=== PATIENT | female | born 1955 | race Caucasian/White ===

== ENCOUNTER 2020-07-29 05:02 | Day surgery (SDC) | payer OTHER ==
[2020-07-22 09:51] VITALS: BMI 37.2
[2020-07-29 15:49] VITALS: TEMP 98.4
[2020-07-29 17:30] VITALS: BP 157/86; PULSE 100
== END 2020-07-29 17:00 | disposition left against medical advice (07) ==
LOC: JRADIR 05:02
PROVIDERS: ATTEND Internal Medicine Pulmonary Disease
PROC: 0BBG3ZX Excision of Left Upper Lung Lobe, Percutaneous Approach, Diagnostic (ICD-10-PCS; principal; 2020-07-29)
DX: C34.12 Malignant neoplasm of upper lobe, left bronchus or lung (principal); J95.811 Postprocedural pneumothorax; Y84.8 Other medical procedures as the cause of abnormal reaction of the patient, or of later complication, without mention of misadventure at the time of the procedure; Y82.8 Other medical devices associated with adverse incidents; Y92.530 Ambulatory surgery center as the place of occurrence of the external cause
CPT/HCPCS: 32405; 71045-TC-FY; 77012-TC; 88305-TC; 88341-TC; 88342-TC

== ENCOUNTER 2020-07-30 11:03 | Inpatient (IN) | payer OTHER ==
[2020-07-30] MEDS ORDERED: LORazepam 2 MG/ML SDV VIAL ONE (12:02)
[2020-07-30 12:25] LABS: BASO % 0.9 % (0-2.0); EOS % 1.8 % (0-4.5); HEMATOCRIT 39.8 % (32.4-45.2); HEMOGLOBIN 12.6 GM/dL (10.7-15.3); LYMPH % 30.4 % (8-40); MCHC 31.7 g/dl (32.0-36.0); MEAN CELL VOLUME 85.1 fl (80-96); MEAN PLT VOLUME 8.9 fl (7.5-11.1); MONO % 8.3 % (3.8-10.2); NEUT % 58.6 % (42.8-82.8); PLATELET COUNT 345 K/MM3 (134-434); RBC 4.67 M/mm3 (3.60-5.2); WHITE BLOOD COUNT 8.5 K/mm3 (4.0-10.0)
[2020-07-30 12:35] LABS: INR 1.07 (0.83-1.09); PROTHROMBIN TIME (PATIENT) 13.1 SEC (9.7-13.0)
[2020-07-30 12:44] LABS: POTASSIUM 4.5 mmol/L (3.5-5.1)
[2020-07-30 12:46] LABS: ALBUMIN 3.6 g/dl (3.4-5.0); BLOOD UREA NITROGEN 18.1 mg/dL (7-18)
[2020-07-30 12:49] LABS: CREATININE 0.8 mg/dL (0.55-1.3)
[2020-07-30 12:51] LABS: BILIRUBIN,TOTAL 0.3 mg/dL (0.2-1)
[2020-07-30] MEDS ORDERED: SENNOSIDES 8.6MG TABLET (FP) PO PRN (15:04)
[2020-07-30] MEDS ORDERED: ACETAMINOPHEN 325 MG TABLET (FP) PO PRN (15:15)
[2020-07-30 16:04] LABS: HEMATOCRIT 37.2 % (32.4-45.2); HEMOGLOBIN 11.7 GM/dL (10.7-15.3); MCH 26.9 pg (25.7-33.7); MCHC 31.5 g/dl (32.0-36.0); MEAN CELL VOLUME 85.2 fl (80-96); MEAN PLT VOLUME 8.7 fl (7.5-11.1); PLATELET COUNT 289 K/MM3 (134-434); RBC 4.37 M/mm3 (3.60-5.2); RDW 15.8 % (11.6-15.6); WHITE BLOOD COUNT 7.8 K/mm3 (4.0-10.0)
[2020-07-30] MEDS ORDERED: DOCUSATE SODIUM 100 MG CAPSULE (FP) PO PRN (16:31)
[2020-07-30 20:55] VITALS: BMI 38.2
[2020-07-30] MEDS ORDERED: traZODone HCL 100 MG TABLET (FP) PO SCH (22:00)
[2020-07-31] MEDS ORDERED: PT OWN MED DRAWER 7, Y5N ONE (09:24)
[2020-07-31 09:47] LABS: HEMATOCRIT 40.2 % (32.4-45.2); HEMOGLOBIN 12.6 GM/dL (10.7-15.3); MCH 26.8 pg (25.7-33.7); MCHC 31.3 g/dl (32.0-36.0); MEAN CELL VOLUME 85.6 fl (80-96); MEAN PLT VOLUME 9.1 fl (7.5-11.1); PLATELET COUNT 297 K/MM3 (134-434); RBC 4.69 M/mm3 (3.60-5.2); RDW 16.2 % (11.6-15.6)
[2020-07-31] MEDS ORDERED: CYANOCOBALAMIN 1,000 MCG TABLET (FP) PO SCH (10:00)
[2020-07-31] MEDS ORDERED: ENALAPRIL MALEATE 10 MG TABLET PO SCH ×2 (10:00)
[2020-07-31 10:05] LABS: POTASSIUM 4.1 mmol/L (3.5-5.1)
[2020-07-31 10:07] LABS: CALCIUM 9.2 mg/dL (8.5-10.1)
[2020-07-31 10:08] LABS: BLOOD UREA NITROGEN 16.2 mg/dL (7-18); MAGNESIUM 2.1 mg/dL (1.8-2.4)
[2020-07-31 10:10] LABS: CREATININE 0.9 mg/dL (0.55-1.3)
[2020-07-31] MEDS ORDERED: oxyCODONE HCL 5 MG TABLET PO ONE (13:45)
[2020-07-31 14:09] VITALS: BP 139/90; PULSE 98; TEMP 97.9
== END 2020-07-31 15:04 | disposition home or self-care (01) | DRG 143 ==
LOC: JER 11:03 → JERBED 13:47 → J6S 20:07
PROVIDERS: ATTEND Internal Medicine
PROC: 0W9B30Z Drainage of Left Pleural Cavity with Drainage Device, Percutaneous Approach (ICD-10-PCS; principal; 2020-07-30)
PROC: 0WPBX0Z Removal of Drainage Device from Left Pleural Cavity, External Approach (ICD-10-PCS; 2020-07-31)
DX: J95.811 Postprocedural pneumothorax (principal); J44.9 Chronic obstructive pulmonary disease, unspecified; E11.9 Type 2 diabetes mellitus without complications; E78.00 Pure hypercholesterolemia, unspecified; D38.1 Neoplasm of uncertain behavior of trachea, bronchus and lung; F17.210 Nicotine dependence, cigarettes, uncomplicated; F41.8 Other specified anxiety disorders; E66.9 Obesity, unspecified; Z68.38 Body mass index [BMI] 38.0-38.9, adult; I11.0 Hypertensive heart disease with heart failure; I50.30 Unspecified diastolic (congestive) heart failure; Z86.718 Personal history of other venous thrombosis and embolism
CPT/HCPCS: 32557; 36415; 71045-TC-FY; 80048; 80053; 83735; 85025; 85027; 85610; 86850; 86900; 86901; 93005; 93010; 99285-25; C9803; U0003

== ENCOUNTER 2020-09-24 07:28 | Day surgery (SDC) | payer OTHER ==
[2020-09-24] MEDS ORDERED: SODIUM CHLORIDE 250 ML IV ONE (09:00)
[2020-09-24] MEDS ORDERED: DEXAMETHASONE SODIUM PHOSPHATE 10 MG in SODIUM CHLORIDE 50 ML IVPB ONE (09:30)
[2020-09-24] MEDS ORDERED: PALONOSETRON HCL 0.25 MG/5 ML VIAL IVPUSH ONE (09:30)
[2020-09-24] MEDS ORDERED: CARBOPLATIN IVPB ONE ×2 (10:00→10:03)
[2020-09-24] MEDS ORDERED: SODIUM CHLORIDE IVPB ONE ×2 (10:00→10:03)
[2020-09-24] MEDS ORDERED: SODIUM CHLORIDE IV ONE (10:30)
[2020-09-24] MEDS ORDERED: ETOPOSIDE IV ONE (10:30)
[2020-09-24 10:40] LABS: POTASSIUM 4.6 mmol/L (3.5-5.1)
[2020-09-24 10:43] LABS: ALBUMIN 3.9 g/dl (3.4-5.0); CALCIUM 9.7 mg/dL (8.5-10.1); MAGNESIUM 2.1 mg/dL (1.8-2.4)
[2020-09-24 10:45] LABS: BILIRUBIN,DIRECT 0.1 mg/dL (0.0-0.2)
[2020-09-24 10:46] LABS: CREATININE 0.8 mg/dL (0.55-1.3)
[2020-09-24 10:47] LABS: BILIRUBIN,TOTAL 0.4 mg/dL (0.2-1); TOT PROT 7.2 g/dl (6.4-8.2)
[2020-09-24 10:59] LABS: BASO % 0.9 % (0-2.0); EOS % 1.7 % (0-4.5); HEMATOCRIT 40.2 % (32.4-45.2); HEMOGLOBIN 13.1 GM/dL (10.7-15.3); LYMPH % 31.8 % (8-40); MCH 27.4 pg (25.7-33.7); MCHC 32.6 g/dl (32.0-36.0); MEAN CELL VOLUME 83.9 fl (80-96); MEAN PLT VOLUME 9.5 fl (7.5-11.1); MONO % 6.8 % (3.8-10.2); NEUT % 58.8 % (42.8-82.8); PLATELET COUNT 302 K/MM3 (134-434); RBC 4.79 M/mm3 (3.60-5.2); RDW 16.5 % (11.6-15.6); WHITE BLOOD COUNT 8.9 K/mm3 (4.0-10.0)
[2020-09-24 17:38] VITALS: BP 137/78; PULSE 96; TEMP 98.4
[2020-09-24] MEDS ORDERED: PORTA CATH FLUSH 10 ML IVPUSH ONE (17:38)
[2020-09-24] MEDS ORDERED: LIDOCAINE 2.5%/PRILOCAINE 2.5% (5 Gram/TUBE) TP ONE (18:00)
== END 2020-09-24 15:45 | disposition home or self-care (01) ==
LOC: JONCCHEMO 07:28
PROVIDERS: ATTEND Internal Medicine Hematology & Oncology
DX: Z51.11 Encounter for antineoplastic chemotherapy (principal); C34.12 Malignant neoplasm of upper lobe, left bronchus or lung
CPT/HCPCS: 36415; 80048; 80076; 83735; 85025; 96361; 96375; 96413; 96415; 96417; J2469

== ENCOUNTER 2020-09-25 08:17 | Day surgery (SDC) | payer OTHER ==
[~2020-09-25 08:17] MED LIST: DEXAMETHASONE INJECTION 4 MG in SODIUM CHLORIDE 50 ML IVPB ONE
[2020-09-25] MEDS ORDERED: SODIUM CHLORIDE 250 ML IV ONE (09:00)
[2020-09-25] MEDS ORDERED: ONDANSETRON 4 MG/2 ML VIAL IVPB ONE (09:00)
[2020-09-25] MEDS ORDERED: DEXAMETHASONE SODIUM PHOSPHATE 10 MG, ONDANSETRON INJECTION 8 MG in SODIUM CHLORIDE 100 ML IVPB ONE (09:30)
[2020-09-25] MEDS ORDERED: DEXAMETHASONE INJECTION 4 MG, ONDANSETRON INJECTION 8 MG in SODIUM CHLORIDE 100 ML IVPB ONE (09:30)
[2020-09-25] MEDS ORDERED: SODIUM CHLORIDE IV ONE (10:00)
[2020-09-25] MEDS ORDERED: ETOPOSIDE IV ONE (10:00)
[2020-09-25] MEDS ORDERED: ACETAMINOPHEN 325 MG TABLET (FP) PO ONE (12:00)
[2020-09-25] MEDS ORDERED: oxyCODONE HCL 5 MG TABLET PO ONE (12:00)
[2020-09-25] MEDS ORDERED: DEXAMETHASONE SOD PHOSPHATE 20 MG/5 ML VIAL IVPB ONE (13:17)
[2020-09-25] MEDS ORDERED: PORTA CATH FLUSH 10 ML IVPUSH ONE (13:31)
[2020-09-25 13:50] VITALS: TEMP 98.7
[2020-09-25 15:36] VITALS: BP 164/95; PULSE 78
== END 2020-09-25 15:35 | disposition home or self-care (01) ==
LOC: JONCCHEMO 08:17
PROVIDERS: ATTEND Internal Medicine Hematology & Oncology
DX: Z51.11 Encounter for antineoplastic chemotherapy (principal); C34.12 Malignant neoplasm of upper lobe, left bronchus or lung
CPT/HCPCS: 96361; 96367; 96413; 96415; J1100

== ENCOUNTER 2020-09-26 07:18 | Day surgery (SDC) | payer OTHER ==
[2020-09-26] MEDS ORDERED: DEXAMETHASONE SOD PHOSPHATE 20 MG/5 ML VIAL IVPB ONE (09:00)
[2020-09-26] MEDS ORDERED: ONDANSETRON 4 MG/2 ML VIAL IVPB ONE (09:00)
[2020-09-26] MEDS ORDERED: SODIUM CHLORIDE 250 ML IV ONE (09:00)
[2020-09-26] MEDS ORDERED: DEXAMETHASONE SODIUM PHOSPHATE 4 MG, ONDANSETRON INJECTION 8 MG in SODIUM CHLORIDE 100 ML IVPB ONE (09:30)
[2020-09-26] MEDS ORDERED: DEXAMETHASONE SODIUM PHOSPHATE 10 MG, ONDANSETRON INJECTION 8 MG in SODIUM CHLORIDE 100 ML IVPB ONE (09:30)
[2020-09-26] MEDS ORDERED: oxyCODONE HCL 5 MG TABLET PO ONE (10:00)
[2020-09-26] MEDS ORDERED: ETOPOSIDE IV ONE (10:00)
[2020-09-26] MEDS ORDERED: ACETAMINOPHEN 325 MG TABLET (FP) PO ONE (10:00)
[2020-09-26] MEDS ORDERED: SODIUM CHLORIDE IV ONE (10:00)
[2020-09-26 13:09] VITALS: TEMP 97.7
[2020-09-26] MEDS ORDERED: PORTA CATH FLUSH 10 ML IVPUSH ONE (13:22)
[2020-09-26 15:07] VITALS: BP 141/73; PULSE 75
== END 2020-09-26 15:05 | disposition home or self-care (01) ==
LOC: JONCCHEMO 07:18
PROVIDERS: ATTEND Internal Medicine Hematology & Oncology
DX: Z51.11 Encounter for antineoplastic chemotherapy (principal); C34.12 Malignant neoplasm of upper lobe, left bronchus or lung
CPT/HCPCS: 96361; 96367; 96413; 96415; J2405

== ENCOUNTER 2020-09-27 14:34 | Day surgery (SDC) | payer OTHER ==
[~2020-09-27 14:34] MED LIST changes: -DEXAMETHASONE INJECTION 4 MG in SODIUM CHLORIDE 50 ML IVPB ONE; +PEGFILGRASTIM-CBQV (UDENYCA) 6 MG/0.6 ML SYRINGE SQ ONE
[2020-09-27 15:08] VITALS: BP 132/78; PULSE 88; TEMP 98.5
== END 2020-09-27 15:00 | disposition home or self-care (01) ==
LOC: JONCCHEMO 14:34 → J7W 14:37 → JONCCHEMO 15:00
PROVIDERS: ATTEND Internal Medicine Hematology & Oncology
PROC: 3E013GC Introduction of Other Therapeutic Substance into Subcutaneous Tissue, Percutaneous Approach (ICD-10-PCS; principal; 2020-09-27)
DX: C34.12 Malignant neoplasm of upper lobe, left bronchus or lung (principal); Z76.89 Persons encountering health services in other specified circumstances
CPT/HCPCS: 96372; Q5111

== ENCOUNTER 2020-10-14 07:26 | Day surgery (SDC) | payer OTHER ==
[2020-10-14] MEDS ORDERED: SODIUM CHLORIDE 250 ML IV ONE (09:00)
[2020-10-14 09:23] LABS: BASO % 0.4 % (0-2.0); EOS % 0.2 % (0-4.5); HEMATOCRIT 33.9 % (32.4-45.2); HEMOGLOBIN 11.2 GM/dL (10.7-15.3); LYMPH % 18.1 % (8-40); MEAN CELL VOLUME 84.7 fl (80-96); MEAN PLT VOLUME 8.4 fl (7.5-11.1); MONO % 7.1 % (3.8-10.2); NEUT % 74.2 % (42.8-82.8); PLATELET COUNT 320 K/MM3 (134-434); RDW 16.6 % (11.6-15.6); WHITE BLOOD COUNT 8.1 K/mm3 (4.0-10.0)
[2020-10-14] MEDS ORDERED: PALONOSETRON HCL 0.25 MG/5 ML VIAL IVPUSH ONE (09:30)
[2020-10-14] MEDS ORDERED: DEXAMETHASONE SODIUM PHOSPHATE 6 MG in SODIUM CHLORIDE 50 ML IVPB ONE (09:30)
[2020-10-14 09:55] LABS: POTASSIUM 4.7 mmol/L (3.5-5.1)
[2020-10-14 09:57] LABS: CALCIUM 9.5 mg/dL (8.5-10.1)
[2020-10-14 09:58] LABS: ALBUMIN 3.5 g/dl (3.4-5.0); BLOOD UREA NITROGEN 13.5 mg/dL (7-18)
[2020-10-14 10:00] LABS: BILIRUBIN,DIRECT 0.1 mg/dL (0.0-0.2)
[2020-10-14] MEDS ORDERED: ETOPOSIDE IV ONE (10:00)
[2020-10-14] MEDS ORDERED: SODIUM CHLORIDE IV ONE (10:00)
[2020-10-14 10:01] LABS: CREATININE 0.9 mg/dL (0.55-1.3)
[2020-10-14 10:02] LABS: BILIRUBIN,TOTAL 0.3 mg/dL (0.2-1); TOT PROT 6.8 g/dl (6.4-8.2)
[2020-10-14 11:15] LABS: ANISOCYTOSIS 1+; MACROCYTOSIS 1+; OVALOCYTE 1+; PLATELET ESTIMATE NORMAL
[2020-10-14] MEDS ORDERED: CARBOPLATIN IVPB ONE (12:00)
[2020-10-14] MEDS ORDERED: SODIUM CHLORIDE IVPB ONE (12:00)
[2020-10-14 14:25] LABS: URINE APPEARANCE CLEAR; URINE BILIRUBIN NEGATIVE (NEGATIVE); URINE COLOR YELLOW; URINE GLUCOSE (UA) NEGATIVE (NEGATIVE); URINE KETONE NEGATIVE (NEGATIVE); URINE LEUK ESTERASE NEGATIVE (NEGATIVE); URINE NITRITE NEGATIVE (NEGATIVE); URINE PROTEIN NEGATIVE (NEGATIVE); URINE UROBILINOGEN 0.2 mg/dL (0.2-1.0)
[2020-10-14 17:18] VITALS: BP 121/62; PULSE 82; TEMP 99.1
[2020-10-14] MEDS ORDERED: PORTA CATH FLUSH 10 ML IVPUSH ONE (17:19)
== END 2020-10-14 15:00 | disposition home or self-care (01) ==
LOC: JONCCHEMO 07:26
PROVIDERS: ATTEND Internal Medicine Hematology & Oncology
DX: Z51.11 Encounter for antineoplastic chemotherapy (principal); C34.12 Malignant neoplasm of upper lobe, left bronchus or lung
CPT/HCPCS: 36415; 80048; 80076; 81003; 83735; 85025; 87086; 96361; 96375; 96413; 96415; 96417; J2469

== ENCOUNTER 2020-10-15 07:59 | Day surgery (SDC) | payer OTHER ==
[2020-10-15] MEDS ORDERED: SODIUM CHLORIDE 250 ML IV ONE (09:00)
[2020-10-15] MEDS ORDERED: DEXAMETHASONE SODIUM PHOSPHATE 4 MG, ONDANSETRON INJECTION 8 MG in SODIUM CHLORIDE 100 ML IVPB ONE (09:30)
[2020-10-15] MEDS ORDERED: ETOPOSIDE IV ONE (10:00)
[2020-10-15] MEDS ORDERED: SODIUM CHLORIDE IV ONE (10:00)
[2020-10-15 16:18] VITALS: TEMP 98.6
[2020-10-15 16:22] VITALS: BP 95/50; PULSE 91
== END 2020-10-15 15:10 | disposition home or self-care (01) ==
LOC: JONCCHEMO 07:59
PROVIDERS: ATTEND Internal Medicine Hematology & Oncology
DX: Z51.11 Encounter for antineoplastic chemotherapy (principal); C34.12 Malignant neoplasm of upper lobe, left bronchus or lung
CPT/HCPCS: 96361; 96367; 96413; 96415; J2405

== ENCOUNTER 2020-10-16 07:49 | Day surgery (SDC) | payer OTHER ==
[2020-10-16] MEDS ORDERED: SODIUM CHLORIDE 250 ML IV ONE (09:00)
[2020-10-16] MEDS ORDERED: DEXAMETHASONE SODIUM PHOSPHATE 4 MG, ONDANSETRON INJECTION 8 MG in SODIUM CHLORIDE 100 ML IVPB ONE (09:30)
[2020-10-16] MEDS ORDERED: SODIUM CHLORIDE IV ONE (10:00)
[2020-10-16] MEDS ORDERED: ETOPOSIDE IV ONE (10:00)
[2020-10-16 16:54] VITALS: BP 147/85; PULSE 81; TEMP 98.3
== END 2020-10-16 16:00 | disposition home or self-care (01) ==
LOC: JONCCHEMO 07:49
PROVIDERS: ATTEND Internal Medicine Hematology & Oncology
DX: Z51.11 Encounter for antineoplastic chemotherapy (principal); C34.12 Malignant neoplasm of upper lobe, left bronchus or lung
CPT/HCPCS: 96361; 96367; 96413; 96415; J2405

== ENCOUNTER 2020-10-17 06:37 | Day surgery (SDC) | payer OTHER ==
[2020-10-17] MEDS ORDERED: PEGFILGRASTIM-CBQV (UDENYCA) 6 MG/0.6 ML SYRINGE SQ ONE (10:00)
[2020-10-17 15:36] VITALS: BP 130/72; PULSE 75; TEMP 98.5
== END 2020-10-17 14:45 | disposition home or self-care (01) ==
LOC: JONCCHEMO 06:37
PROVIDERS: ATTEND Internal Medicine Hematology & Oncology
PROC: 3E013GC Introduction of Other Therapeutic Substance into Subcutaneous Tissue, Percutaneous Approach (ICD-10-PCS; principal; 2020-10-17)
DX: C34.12 Malignant neoplasm of upper lobe, left bronchus or lung (principal)
CPT/HCPCS: 96372; Q5111

== ENCOUNTER 2020-11-02 10:14 | Emergency (ER) | payer OTHER ==
[2020-11-02 10:28] VITALS: TEMP 98.1; BMI 36.8
[2020-11-02] MEDS ORDERED: BAMLANIVIMAB 700 MG, ETESEVIMAB 1,400 MG in SODIUM CHLORIDE 250 ML IVPB ONE (10:59)
[2020-11-02 11:38] LABS: BASO % 0.4 % (0-2.0); HEMATOCRIT 30.1 % (32.4-45.2); HEMOGLOBIN 9.9 GM/dL (10.7-15.3); LYMPH % 13.3 % (8-40); MCH 28.2 pg (25.7-33.7); MCHC 32.8 g/dl (32.0-36.0); MEAN CELL VOLUME 85.9 fl (80-96); MONO % 10.1 % (3.8-10.2); NEUT % 76.2 % (42.8-82.8); PLATELET COUNT 140 K/MM3 (134-434); RDW 17.4 % (11.6-15.6); WHITE BLOOD COUNT 6.6 K/mm3 (4.0-10.0)
[2020-11-02 12:21] LABS: POTASSIUM 4.4 mmol/L (3.5-5.1)
[2020-11-02 12:23] LABS: BLOOD UREA NITROGEN 7.9 mg/dL (7-18); CALCIUM 8.9 mg/dL (8.5-10.1)
[2020-11-02 12:24] LABS: ALBUMIN 3.4 g/dl (3.4-5.0)
[2020-11-02 12:27] LABS: CREATININE 0.8 mg/dL (0.55-1.3)
[2020-11-02 12:28] LABS: BILIRUBIN,TOTAL 0.2 mg/dL (0.2-1); TOT PROT 6.6 g/dl (6.4-8.2)
[2020-11-02 12:30] LABS: ANISOCYTOSIS 2+; MACROCYTOSIS 0; OVALOCYTE 1+; PLATELET ESTIMATE DECREASED
[2020-11-02 13:35] VITALS: BP 128/76; PULSE 76
== END 2020-11-02 15:00 | disposition home or self-care (01) ==
LOC: JER 10:14
DX: U07.1 COVID-19 (principal)
CPT/HCPCS: 36415; 71046-TC-FY; 80053; 85025; 99284-25; M0239; Q0239; Q0245

== ENCOUNTER 2020-11-24 07:38 | Day surgery (SDC) | payer OTHER ==
[2020-11-24] MEDS ORDERED: SODIUM CHLORIDE 250 ML IV ONE (09:00)
[2020-11-24 09:07] LABS: BASO % 0.6 % (0-2.0); EOS % 2.8 % (0-4.5); HEMATOCRIT 34.7 % (32.4-45.2); HEMOGLOBIN 11.2 GM/dL (10.7-15.3); LYMPH % 16.3 % (8-40); MCH 28.8 pg (25.7-33.7); MCHC 32.3 g/dl (32.0-36.0); MEAN CELL VOLUME 88.9 fl (80-96); MEAN PLT VOLUME 8.8 fl (7.5-11.1); MONO % 8.8 % (3.8-10.2); NEUT % 71.5 % (42.8-82.8); PLATELET COUNT 231 K/MM3 (134-434); RBC 3.91 M/mm3 (3.60-5.2); RDW 22.3 % (11.6-15.6); WHITE BLOOD COUNT 6.7 K/mm3 (4.0-10.0)
[2020-11-24 09:28] LABS: CALCIUM 9.4 mg/dL (8.5-10.1)
[2020-11-24 09:29] LABS: ALBUMIN 3.7 g/dl (3.4-5.0); BLOOD UREA NITROGEN 12.7 mg/dL (7-18)
[2020-11-24] MEDS ORDERED: PALONOSETRON HCL 0.25 MG/5 ML VIAL IVPUSH ONE (09:30)
[2020-11-24] MEDS ORDERED: DEXAMETHASONE SODIUM PHOSPHATE 6 MG in SODIUM CHLORIDE 50 ML IVPB ONE (09:30)
[2020-11-24 09:31] LABS: BILIRUBIN,DIRECT 0.1 mg/dL (0.0-0.2)
[2020-11-24 09:32] LABS: CREATININE 0.9 mg/dL (0.55-1.3)
[2020-11-24 09:33] LABS: BILIRUBIN,TOTAL 0.5 mg/dL (0.2-1)
[2020-11-24 09:34] LABS: TOT PROT 6.9 g/dl (6.4-8.2)
[2020-11-24] MEDS ORDERED: ETOPOSIDE IV ONE (10:00)
[2020-11-24] MEDS ORDERED: SODIUM CHLORIDE IV ONE (10:00)
[2020-11-24] MEDS ORDERED: CARBOPLATIN IVPB ONE (12:00)
[2020-11-24] MEDS ORDERED: SODIUM CHLORIDE IVPB ONE (12:00)
[2020-11-24 17:12] VITALS: BP 130/59; PULSE 75; TEMP 98.9
[2020-11-24] MEDS ORDERED: PORTA CATH FLUSH 10 ML IVPUSH ONE (17:12)
== END 2020-11-24 15:35 | disposition home or self-care (01) ==
LOC: JONCCHEMO 07:38
PROVIDERS: ATTEND Internal Medicine Hematology & Oncology
DX: Z51.11 Encounter for antineoplastic chemotherapy (principal); C34.12 Malignant neoplasm of upper lobe, left bronchus or lung
CPT/HCPCS: 36415; 80048; 80076; 83735; 85025; 96361; 96367; 96375; 96413; 96415; 96417; J2469

== ENCOUNTER 2020-11-25 07:31 | Day surgery (SDC) | payer OTHER ==
[2020-11-25] MEDS ORDERED: SODIUM CHLORIDE 250 ML IV ONE ×2 (09:00)
[2020-11-25] MEDS ORDERED: DEXAMETHASONE SODIUM PHOSPHATE 4 MG, ONDANSETRON INJECTION 8 MG in SODIUM CHLORIDE 100 ML IVPB ONE ×2 (09:30)
[2020-11-25] MEDS ORDERED: SODIUM CHLORIDE IV ONE (10:00)
[2020-11-25] MEDS ORDERED: ETOPOSIDE IV ONE (10:00)
[2020-11-25 16:19] VITALS: BP 151/80; TEMP 98.7
[2020-11-25 17:08] VITALS: PULSE 88
== END 2020-11-25 15:00 | disposition home or self-care (01) ==
LOC: JONCCHEMO 07:31
PROVIDERS: ATTEND Internal Medicine Hematology & Oncology
DX: Z51.11 Encounter for antineoplastic chemotherapy (principal); C34.12 Malignant neoplasm of upper lobe, left bronchus or lung
CPT/HCPCS: 96361; 96367; 96413; 96415; J2405

== ENCOUNTER 2020-11-26 06:51 | Day surgery (SDC) | payer OTHER ==
[2020-11-26] MEDS ORDERED: SODIUM CHLORIDE 250 ML IV ONE (09:00)
[2020-11-26] MEDS ORDERED: DEXAMETHASONE SODIUM PHOSPHATE 4 MG, ONDANSETRON INJECTION 8 MG in SODIUM CHLORIDE 100 ML IVPB ONE (09:30)
[2020-11-26] MEDS ORDERED: ETOPOSIDE IV ONE (10:00)
[2020-11-26] MEDS ORDERED: SODIUM CHLORIDE IV ONE (10:00)
[2020-11-26 16:14] VITALS: TEMP 98.2
[2020-11-26 16:16] VITALS: BP 150/90; PULSE 96
== END 2020-11-26 12:50 | disposition home or self-care (01) ==
LOC: JONCCHEMO 06:51
PROVIDERS: ATTEND Internal Medicine Hematology & Oncology
DX: Z51.11 Encounter for antineoplastic chemotherapy (principal); C34.12 Malignant neoplasm of upper lobe, left bronchus or lung
CPT/HCPCS: 96361; 96367; 96413; 96415; J2405

== ENCOUNTER 2020-11-27 07:27 | Day surgery (SDC) | payer OTHER ==
[2020-11-27] MEDS ORDERED: PEGFILGRASTIM-CBQV (UDENYCA) 6 MG/0.6 ML SYRINGE SQ ONE (10:00)
[2020-11-27 18:24] VITALS: BP 123/64; PULSE 102; TEMP 98.4
== END 2020-11-27 10:45 | disposition home or self-care (01) ==
LOC: JONCCHEMO 07:27
PROVIDERS: ATTEND Internal Medicine Hematology & Oncology
PROC: 3E013GC Introduction of Other Therapeutic Substance into Subcutaneous Tissue, Percutaneous Approach (ICD-10-PCS; principal; 2020-11-27)
DX: C34.12 Malignant neoplasm of upper lobe, left bronchus or lung (principal); Z76.89 Persons encountering health services in other specified circumstances
CPT/HCPCS: 96372; Q5111

== ENCOUNTER 2020-12-15 07:17 | Day surgery (SDC) | payer OTHER ==
[2020-12-15] MEDS ORDERED: SODIUM CHLORIDE 250 ML IV ONE (09:00)
[2020-12-15] MEDS ORDERED: PALONOSETRON HCL 0.25 MG/5 ML VIAL IVPUSH ONE (10:00)
[2020-12-15] MEDS ORDERED: DEXAMETHASONE SODIUM PHOSPHATE 6 MG in SODIUM CHLORIDE 50 ML IVPB ONE (10:00)
[2020-12-15] MEDS ORDERED: SODIUM CHLORIDE IVPB ONE ×2 (10:30→12:45)
[2020-12-15] MEDS ORDERED: CARBOPLATIN IVPB ONE ×2 (10:30→12:45)
[2020-12-15 10:51] LABS: BASO % 0.6 % (0-2.0); EOS % 0.4 % (0-4.5); HEMATOCRIT 30.1 % (32.4-45.2); HEMOGLOBIN 9.9 GM/dL (10.7-15.3); LYMPH % 16.5 % (8-40); MCH 29.8 pg (25.7-33.7); MCHC 32.9 g/dl (32.0-36.0); MEAN CELL VOLUME 90.4 fl (80-96); MEAN PLT VOLUME 8.6 fl (7.5-11.1); MONO % 10.5 % (3.8-10.2); PLATELET COUNT 428 K/MM3 (134-434); RBC 3.32 M/mm3 (3.60-5.2); RDW 21.4 % (11.6-15.6); WHITE BLOOD COUNT 6.5 K/mm3 (4.0-10.0)
[2020-12-15] MEDS ORDERED: ETOPOSIDE IV ONE (11:00)
[2020-12-15] MEDS ORDERED: SODIUM CHLORIDE 0.9% IV ONE (11:00)
[2020-12-15 11:16] LABS: ALBUMIN 3.4 g/dl (3.4-5.0); BLOOD UREA NITROGEN 12.3 mg/dL (7-18); CALCIUM 9.4 mg/dL (8.5-10.1)
[2020-12-15 11:19] LABS: BILIRUBIN,DIRECT 0.1 mg/dL (0.0-0.2); CREATININE 0.9 mg/dL (0.55-1.3)
[2020-12-15 11:21] LABS: TOT PROT 6.7 g/dl (6.4-8.2)
[2020-12-15 11:22] LABS: BILIRUBIN,TOTAL 0.3 mg/dL (0.2-1)
[2020-12-15 11:30] LABS: ANISOCYTOSIS 1+; MACROCYTOSIS 1+; PLATELET ESTIMATE NORMAL
[2020-12-15 17:57] VITALS: TEMP 98.3
[2020-12-15 17:58] VITALS: BP 106/55; PULSE 93
== END 2020-12-15 16:40 | disposition home or self-care (01) ==
LOC: JONCCHEMO 07:17
PROVIDERS: ATTEND Internal Medicine Hematology & Oncology
DX: Z51.11 Encounter for antineoplastic chemotherapy (principal); C34.12 Malignant neoplasm of upper lobe, left bronchus or lung
CPT/HCPCS: 36415; 80048; 80076; 83735; 85025; 96361; 96375; 96413; 96415; 96417; J2469; J9181

== ENCOUNTER 2020-12-16 07:40 | Day surgery (SDC) | payer OTHER ==
[2020-12-16] MEDS ORDERED: SODIUM CHLORIDE 250 ML IV ONE (09:00)
[2020-12-16] MEDS ORDERED: DEXAMETHASONE SODIUM PHOSPHATE 4 MG, ONDANSETRON INJECTION 8 MG in SODIUM CHLORIDE 100 ML IVPB ONE (10:00)
[2020-12-16] MEDS ORDERED: SODIUM CHLORIDE 0.9% IV ONE (10:30)
[2020-12-16] MEDS ORDERED: ETOPOSIDE IV ONE (10:30)
[2020-12-16 16:27] VITALS: TEMP 98.5
[2020-12-17 07:34] VITALS: BP 132/84; PULSE 78
== END 2020-12-16 15:00 | disposition home or self-care (01) ==
LOC: JONCCHEMO 07:40
PROVIDERS: ATTEND Internal Medicine Hematology & Oncology
DX: Z51.11 Encounter for antineoplastic chemotherapy (principal); C34.12 Malignant neoplasm of upper lobe, left bronchus or lung
CPT/HCPCS: 96361; 96367; 96413; 96415; J9181

== ENCOUNTER 2020-12-17 07:19 | Day surgery (SDC) | payer OTHER ==
[2020-12-17] MEDS ORDERED: SODIUM CHLORIDE 250 ML IV ONE (09:00)
[2020-12-17] MEDS ORDERED: DEXAMETHASONE SODIUM PHOSPHATE 4 MG, ONDANSETRON INJECTION 8 MG in SODIUM CHLORIDE 100 ML IVPB ONE (10:00)
[2020-12-17] MEDS ORDERED: ETOPOSIDE IV ONE (10:30)
[2020-12-17] MEDS ORDERED: SODIUM CHLORIDE 0.9% IV ONE (10:30)
[2020-12-17 15:25] VITALS: BP 133/83; PULSE 94; TEMP 98.7
[2020-12-17] MEDS ORDERED: PORTA CATH FLUSH 10 ML IVPUSH ONE (15:25)
== END 2020-12-17 14:15 | disposition home or self-care (01) ==
LOC: JONCCHEMO 07:19
PROVIDERS: ATTEND Internal Medicine Hematology & Oncology
DX: Z51.11 Encounter for antineoplastic chemotherapy (principal); C34.12 Malignant neoplasm of upper lobe, left bronchus or lung
CPT/HCPCS: 96361; 96367; 96413; 96415; J9181

== ENCOUNTER 2020-12-18 08:04 | Day surgery (SDC) | payer OTHER ==
[2020-12-18] MEDS ORDERED: PEGFILGRASTIM-CBQV (UDENYCA) 6 MG/0.6 ML SYRINGE SQ ONE (10:00)
[2020-12-18 15:15] VITALS: BP 148/80; PULSE 85; TEMP 98.9
== END 2020-12-18 13:35 | disposition home or self-care (01) ==
LOC: JONCCHEMO 08:04
PROVIDERS: ATTEND Internal Medicine Hematology & Oncology
PROC: 3E013GC Introduction of Other Therapeutic Substance into Subcutaneous Tissue, Percutaneous Approach (ICD-10-PCS; principal; 2020-12-18)
DX: C34.12 Malignant neoplasm of upper lobe, left bronchus or lung (principal); Z76.89 Persons encountering health services in other specified circumstances
CPT/HCPCS: 96372; Q5111

== ENCOUNTER 2021-01-06 07:28 | Day surgery (SDC) | payer OTHER ==
[2021-01-06 08:49] LABS: BASO % 0.6 % (0-2.0); HEMATOCRIT 28.9 % (32.4-45.2); HEMOGLOBIN 9.4 GM/dL (10.7-15.3); LYMPH % 14.6 % (8-40); MCH 30.3 pg (25.7-33.7); MCHC 32.6 g/dl (32.0-36.0); MEAN PLT VOLUME 8.5 fl (7.5-11.1); MONO % 12.5 % (3.8-10.2); NEUT % 71.3 % (42.8-82.8); PLATELET COUNT 384 K/MM3 (134-434); RBC 3.11 M/mm3 (3.60-5.2); RDW 22.3 % (11.6-15.6); WHITE BLOOD COUNT 6.5 K/mm3 (4.0-10.0)
[2021-01-06] MEDS ORDERED: SODIUM CHLORIDE 250 ML IV ONE (09:00)
[2021-01-06 09:14] LABS: MAGNESIUM 1.8 mg/dL (1.8-2.4)
[2021-01-06 09:15] LABS: ALBUMIN 3.6 g/dl (3.4-5.0); BLOOD UREA NITROGEN 17.9 mg/dL (7-18); CALCIUM 9.7 mg/dL (8.5-10.1)
[2021-01-06 09:18] LABS: BILIRUBIN,DIRECT 0.1 mg/dL (0.0-0.2); CREATININE 0.8 mg/dL (0.55-1.3)
[2021-01-06 09:20] LABS: BILIRUBIN,TOTAL 0.3 mg/dL (0.2-1)
[2021-01-06] MEDS ORDERED: PALONOSETRON HCL 0.25 MG/5 ML VIAL IVPUSH ONE (10:00)
[2021-01-06] MEDS ORDERED: DEXAMETHASONE SODIUM PHOSPHATE 6 MG in SODIUM CHLORIDE 50 ML IVPB ONE (10:00)
[2021-01-06] MEDS ORDERED: LIDOCAINE 2.5%/PRILOCAINE 2.5% 30 GRAM TUBE TP ONE (10:07)
[2021-01-06 10:17] LABS: ANISOCYTOSIS 1+; MACROCYTOSIS 1+; PLATELET ESTIMATE NORMAL
[2021-01-06] MEDS ORDERED: CARBOPLATIN IVPB ONE ×2 (10:30)
[2021-01-06] MEDS ORDERED: SODIUM CHLORIDE IVPB ONE ×2 (10:30)
[2021-01-06] MEDS ORDERED: SODIUM CHLORIDE 0.9% IV ONE (11:00)
[2021-01-06] MEDS ORDERED: ETOPOSIDE IV ONE (11:00)
[2021-01-06 17:29] VITALS: TEMP 98.6
[2021-01-06 17:39] VITALS: BP 149/82; PULSE 82
== END 2021-01-06 14:30 | disposition home or self-care (01) ==
LOC: JONCCHEMO 07:28
PROVIDERS: ATTEND Internal Medicine Hematology & Oncology
PROC: 3E04305 Introduction of Other Antineoplastic into Central Vein, Percutaneous Approach (ICD-10-PCS; principal; 2021-01-06)
PROC: 3E043GC Introduction of Other Therapeutic Substance into Central Vein, Percutaneous Approach (ICD-10-PCS; 2021-01-06)
PROC: 3E0437Z Introduction of Electrolytic and Water Balance Substance into Central Vein, Percutaneous Approach (ICD-10-PCS; 2021-01-06)
DX: Z51.11 Encounter for antineoplastic chemotherapy (principal); C34.12 Malignant neoplasm of upper lobe, left bronchus or lung
CPT/HCPCS: 36415; 80048; 80076; 82378; 82977; 83735; 85025; 96361; 96375; 96413; 96415; 96417; J2469

== ENCOUNTER 2021-01-07 07:40 | Day surgery (SDC) | payer OTHER ==
[2021-01-07] MEDS ORDERED: SODIUM CHLORIDE 250 ML IV ONE (09:00)
[2021-01-07] MEDS ORDERED: DEXAMETHASONE SODIUM PHOSPHATE 4 MG, ONDANSETRON INJECTION 8 MG in SODIUM CHLORIDE 100 ML IVPB ONE (10:00)
[2021-01-07] MEDS ORDERED: SODIUM CHLORIDE 0.9% IV ONE (10:30)
[2021-01-07] MEDS ORDERED: ETOPOSIDE IV ONE (10:30)
[2021-01-07 18:59] VITALS: TEMP 98.7
[2021-01-07 19:04] VITALS: BP 132/76; PULSE 80
== END 2021-01-07 13:45 | disposition home or self-care (01) ==
LOC: JONCCHEMO 07:40
PROVIDERS: ATTEND Internal Medicine Hematology & Oncology
PROC: 3E04305 Introduction of Other Antineoplastic into Central Vein, Percutaneous Approach (ICD-10-PCS; principal; 2021-01-07)
PROC: 3E043GC Introduction of Other Therapeutic Substance into Central Vein, Percutaneous Approach (ICD-10-PCS; 2021-01-07)
PROC: 3E0437Z Introduction of Electrolytic and Water Balance Substance into Central Vein, Percutaneous Approach (ICD-10-PCS; 2021-01-07)
DX: Z51.11 Encounter for antineoplastic chemotherapy (principal); C34.12 Malignant neoplasm of upper lobe, left bronchus or lung
CPT/HCPCS: 96361; 96367; 96413; 96415

== ENCOUNTER 2021-01-08 08:45 | Day surgery (SDC) | payer OTHER ==
[2021-01-08] MEDS ORDERED: SODIUM CHLORIDE 250 ML IV ONE (09:00)
[2021-01-08] MEDS ORDERED: DEXAMETHASONE SODIUM PHOSPHATE 4 MG, ONDANSETRON INJECTION 8 MG in SODIUM CHLORIDE 100 ML IVPB ONE (10:00)
[2021-01-08] MEDS ORDERED: SODIUM CHLORIDE 0.9% IV ONE (10:30)
[2021-01-08] MEDS ORDERED: ETOPOSIDE IV ONE (10:30)
[2021-01-08 17:02] VITALS: TEMP 98.8
[2021-01-09 18:19] VITALS: BP 136/88; PULSE 90
== END 2021-01-08 14:30 | disposition home or self-care (01) ==
LOC: JONCCHEMO 08:45
PROVIDERS: ATTEND Internal Medicine Hematology & Oncology
PROC: 3E04305 Introduction of Other Antineoplastic into Central Vein, Percutaneous Approach (ICD-10-PCS; principal; 2021-01-08)
PROC: 3E043GC Introduction of Other Therapeutic Substance into Central Vein, Percutaneous Approach (ICD-10-PCS; 2021-01-08)
PROC: 3E0437Z Introduction of Electrolytic and Water Balance Substance into Central Vein, Percutaneous Approach (ICD-10-PCS; 2021-01-08)
DX: Z51.11 Encounter for antineoplastic chemotherapy (principal); C34.12 Malignant neoplasm of upper lobe, left bronchus or lung
CPT/HCPCS: 96361; 96367; 96413; 96415

== ENCOUNTER 2021-01-09 08:13 | Day surgery (SDC) | payer OTHER ==
[2021-01-09] MEDS ORDERED: PEGFILGRASTIM-CBQV (UDENYCA) 6 MG/0.6 ML SYRINGE SQ ONE (09:00)
[2021-01-09 16:44] VITALS: BP 122/76; PULSE 100; TEMP 98
== END 2021-01-09 12:55 | disposition home or self-care (01) ==
LOC: JONCCHEMO 08:13
PROVIDERS: ATTEND Internal Medicine Hematology & Oncology
PROC: 3E013GC Introduction of Other Therapeutic Substance into Subcutaneous Tissue, Percutaneous Approach (ICD-10-PCS; principal; 2021-01-09)
DX: Z76.89 Persons encountering health services in other specified circumstances (principal); C34.12 Malignant neoplasm of upper lobe, left bronchus or lung
CPT/HCPCS: 96372; Q5111

== ENCOUNTER 2021-01-26 07:25 | Day surgery (SDC) | payer OTHER ==
[2021-01-26 08:45] LABS: BASO % 0.2 % (0-2.0); EOS % 0.3 % (0-4.5); HEMATOCRIT 28.5 % (32.4-45.2); LYMPH % 10.7 % (8-40); MCH 30.6 pg (25.7-33.7); MCHC 31.7 g/dl (32.0-36.0); MEAN CELL VOLUME 96.6 fl (80-96); MEAN PLT VOLUME 9.2 fl (7.5-11.1); MONO % 8.9 % (3.8-10.2); NEUT % 79.9 % (42.8-82.8); PLATELET COUNT 235 10^3/uL (134-434); RBC 2.95 M/mm3 (3.60-5.2); RDW 23.3 % (11.6-15.6); WHITE BLOOD COUNT 13.9 K/mm3 (4.0-10.0)
[2021-01-26 08:54] LABS: CALCIUM 9.5 mg/dL (8.5-10.1)
[2021-01-26 08:55] LABS: ALBUMIN 3.7 g/dl (3.4-5.0); BLOOD UREA NITROGEN 16.1 mg/dL (7-18); MAGNESIUM 1.8 mg/dL (1.8-2.4)
[2021-01-26 08:58] LABS: BILIRUBIN,DIRECT 0.1 mg/dL (0.0-0.2); CREATININE 1.2 mg/dL (0.55-1.3)
[2021-01-26 08:59] LABS: BILIRUBIN,TOTAL 0.6 mg/dL (0.2-1); TOT PROT 6.7 g/dl (6.4-8.2)
[2021-01-26] MEDS ORDERED: SODIUM CHLORIDE 250 ML IV ONE (09:00)
[2021-01-26] MEDS ORDERED: DEXAMETHASONE SODIUM PHOSPHATE 6 MG in SODIUM CHLORIDE 50 ML IVPB ONE (09:30)
[2021-01-26] MEDS ORDERED: PALONOSETRON HCL 0.25 MG/5 ML VIAL IVPUSH ONE (09:30)
[2021-01-26] MEDS ORDERED: CARBOPLATIN IVPB ONE ×2 (10:00)
[2021-01-26] MEDS ORDERED: SODIUM CHLORIDE IVPB ONE ×2 (10:00)
[2021-01-26 10:11] LABS: ANISOCYTOSIS 2+; MACROCYTOSIS 2+; PLATELET ESTIMATE NORMAL
[2021-01-26] MEDS ORDERED: SODIUM CHLORIDE 0.9% IV ONE (10:30)
[2021-01-26] MEDS ORDERED: ETOPOSIDE IV ONE (10:30)
[2021-01-26 17:26] VITALS: BP 97/55; PULSE 87; TEMP 98.8
[2021-01-26] MEDS ORDERED: PORTA CATH FLUSH 10 ML IVPUSH ONE (17:38)
== END 2021-01-26 14:40 | disposition home or self-care (01) ==
LOC: JONCCHEMO 07:25
PROVIDERS: ATTEND Internal Medicine Hematology & Oncology
DX: Z51.11 Encounter for antineoplastic chemotherapy (principal); C34.12 Malignant neoplasm of upper lobe, left bronchus or lung
CPT/HCPCS: 36415; 80048; 80076; 83735; 85025; 96361; 96375; 96413; 96415; 96417; J2469

== ENCOUNTER 2021-01-27 07:56 | Day surgery (SDC) | payer OTHER ==
[2021-01-27] MEDS ORDERED: SODIUM CHLORIDE 250 ML IV ONE (09:00)
[2021-01-27] MEDS ORDERED: DEXAMETHASONE SODIUM PHOSPHATE 4 MG, ONDANSETRON INJECTION 8 MG in SODIUM CHLORIDE 100 ML IVPB ONE (09:30)
[2021-01-27] MEDS ORDERED: ETOPOSIDE IV ONE (10:00)
[2021-01-27] MEDS ORDERED: SODIUM CHLORIDE 0.9% IV ONE (10:00)
[2021-01-27 17:05] VITALS: TEMP 98.3
[2021-01-27 17:08] VITALS: BP 134/79; PULSE 87
[2021-01-27] MEDS ORDERED: PORTA CATH FLUSH 10 ML IVPUSH ONE (17:08)
== END 2021-01-27 14:30 | disposition home or self-care (01) ==
LOC: JONCCHEMO 07:56
PROVIDERS: ATTEND Internal Medicine Hematology & Oncology
DX: Z51.11 Encounter for antineoplastic chemotherapy (principal); C34.12 Malignant neoplasm of upper lobe, left bronchus or lung
CPT/HCPCS: 96361; 96367; 96413; 96415

== ENCOUNTER 2021-01-28 07:12 | Day surgery (SDC) | payer OTHER ==
[~2021-01-28 07:12] MED LIST changes: -PEGFILGRASTIM-CBQV (UDENYCA) 6 MG/0.6 ML SYRINGE SQ ONE; +SODIUM CHLORIDE 250 ML IV ONE
[2021-01-28] MEDS ORDERED: SODIUM CHLORIDE 250 ML IV ONE (09:00)
[2021-01-28] MEDS ORDERED: DEXAMETHASONE SODIUM PHOSPHATE 4 MG, ONDANSETRON INJECTION 8 MG in SODIUM CHLORIDE 100 ML IVPB ONE (09:30)
[2021-01-28] MEDS ORDERED: SODIUM CHLORIDE 0.9% IV ONE (10:00)
[2021-01-28] MEDS ORDERED: ETOPOSIDE IV ONE (10:00)
[2021-01-28 17:09] VITALS: TEMP 98.2
[2021-01-28 17:13] VITALS: BP 131/68; PULSE 81
[2021-01-28] MEDS ORDERED: PORTA CATH FLUSH 10 ML IVPUSH ONE (17:13)
== END 2021-01-28 15:20 | disposition home or self-care (01) ==
LOC: JONCCHEMO 07:12
PROVIDERS: ATTEND Internal Medicine Hematology & Oncology
DX: Z51.11 Encounter for antineoplastic chemotherapy (principal); C34.12 Malignant neoplasm of upper lobe, left bronchus or lung
CPT/HCPCS: 96361; 96367; 96413; 96415

== ENCOUNTER 2021-01-29 11:15 | Day surgery (SDC) | payer OTHER ==
[~2021-01-29 11:15] MED LIST changes: +PEGFILGRASTIM-CBQV (UDENYCA) 6 MG/0.6 ML SYRINGE SQ ONE; -SODIUM CHLORIDE 250 ML IV ONE
[2021-01-29 17:44] VITALS: BP 107/74; PULSE 93; TEMP 98.1
== END 2021-01-29 14:05 | disposition home or self-care (01) ==
LOC: JONCCHEMO 11:15
PROVIDERS: ATTEND Internal Medicine Hematology & Oncology
PROC: 3E013GC Introduction of Other Therapeutic Substance into Subcutaneous Tissue, Percutaneous Approach (ICD-10-PCS; principal; 2021-01-29)
DX: C34.12 Malignant neoplasm of upper lobe, left bronchus or lung (principal); Z76.89 Persons encountering health services in other specified circumstances
CPT/HCPCS: 96372; Q5111

== ENCOUNTER 2021-05-06 07:36 | Day surgery (SDC) | payer OTHER ==
[2021-05-06 08:59] LABS: BASO % 0.7 % (0-2.0); EOS % 1.6 % (0-4.5); HEMATOCRIT 40.3 % (32.4-45.2); HEMOGLOBIN 13.1 GM/dL (10.7-15.3); LYMPH % 21.8 % (8-40); MCH 29.8 pg (25.7-33.7); MCHC 32.5 g/dl (32.0-36.0); MEAN CELL VOLUME 91.6 fl (80-96); MEAN PLT VOLUME 8.2 fl (7.5-11.1); MONO % 6.4 % (3.8-10.2); NEUT % 69.5 % (42.8-82.8); PLATELET COUNT 264 10^3/uL (134-434); RBC 4.41 M/mm3 (3.60-5.2); RDW 14.7 % (11.6-15.6); WHITE BLOOD COUNT 5.9 K/mm3 (4.0-10.0)
[2021-05-06] MEDS ORDERED: D5-1/2NS+20 MEQ KCL - 20 MEQ/1,000 ML INFUS.BAG IV ONE (09:15)
[2021-05-06] MEDS ORDERED: MAGNESIUM 1GM/D5W - 1 GM/100 ML IVPB IVPB ONE (09:30)
[2021-05-06 09:44] LABS: ALBUMIN 3.9 g/dl (3.4-5.0); BLOOD UREA NITROGEN 19.3 mg/dL (7-18); CALCIUM 9.5 mg/dL (8.5-10.1)
[2021-05-06 09:47] LABS: BILIRUBIN,DIRECT 0.1 mg/dL (0.0-0.2); CREATININE 0.9 mg/dL (0.55-1.3); MAGNESIUM 2.1 mg/dL (1.8-2.4)
[2021-05-06 09:48] LABS: BILIRUBIN,TOTAL 0.3 mg/dL (0.2-1); TOT PROT 7.5 g/dl (6.4-8.2)
[2021-05-06 14:34] VITALS: BP 127/64; PULSE 83; TEMP 98.5
[2021-05-06] MEDS ORDERED: PORTA CATH FLUSH 10 ML IVPUSH ONE (14:34)
== END 2021-05-06 14:20 | disposition home or self-care (01) ==
LOC: JONCNONCHE 07:36
PROVIDERS: ATTEND Internal Medicine Hematology & Oncology
PROC: 3E043GC Introduction of Other Therapeutic Substance into Central Vein, Percutaneous Approach (ICD-10-PCS; principal; 2021-05-06)
PROC: 3E043GC Introduction of Other Therapeutic Substance into Central Vein, Percutaneous Approach (ICD-10-PCS; 2021-05-06)
DX: C34.12 Malignant neoplasm of upper lobe, left bronchus or lung (principal); I10 Essential (primary) hypertension; R30.0 Dysuria; E11.9 Type 2 diabetes mellitus without complications; Z76.89 Persons encountering health services in other specified circumstances
CPT/HCPCS: 36415; 71046-TC-FY; 80048; 80076; 82378; 83735; 85025; 87040; 87086; 96361; 96365; C9803; U0003; U0005

== ENCOUNTER 2021-11-27 11:30 | Inpatient (IN) | payer MEDICARE, OTHER ==
[2021-11-27 11:53] VITALS: BMI 32.9
[2021-11-27] MEDS ORDERED: SODIUM CHLORIDE 0.9% 500 ML INFUS.BAG IV ONE (12:21)
[2021-11-27] MEDS ORDERED: ALBUTEROL SO4 2.5/IPRATROPIUM 0.5 INH SOL 3 ML VIAL.NEB. NEB ONE ×2 (12:21→12:40)
[2021-11-27 12:55] LABS: BASO % 0.3 % (0-2.0); EOS % 0.5 % (0-4.5); HEMATOCRIT 40.8 % (32.4-45.2); HEMOGLOBIN 13.4 GM/dL (10.7-15.3); LYMPH % 6.3 % (8-40); MCH 29.1 pg (25.7-33.7); MCHC 32.9 g/dl (32.0-36.0); MEAN CELL VOLUME 88.4 fl (80-96); MEAN PLT VOLUME 7.9 fl (7.5-11.1); MONO % 6.3 % (3.8-10.2); NEUT % 86.6 % (42.8-82.8); PLATELET COUNT 243 10^3/uL (134-434); RBC 4.62 M/mm3 (3.60-5.2); RDW 14.7 % (11.6-15.6); VENOUS BASE EXCESS 3.1 mmol/L (-2-2); VENOUS O2 SATURATION 32.4 % (70-80); VENOUS PCO2 50.6 mmHg (38-52); VENOUS PH 7.379 (7.310-7.410); WHITE BLOOD COUNT 11.9 K/mm3 (4.0-10.0)
[2021-11-27 13:03] LABS: INR 1.23 (0.83-1.09); PROTHROMBIN TIME (PATIENT) 14.2 SEC (9.7-13.0)
[2021-11-27 13:41] LABS: CALCIUM 9.8 mg/dL (8.5-10.1)
[2021-11-27 13:42] LABS: ALBUMIN 3.3 g/dl (3.4-5.0)
[2021-11-27 13:45] LABS: CREATININE 1.2 mg/dL (0.55-1.3)
[2021-11-27 13:46] LABS: BILIRUBIN,TOTAL 0.6 mg/dL (0.2-1); TOT PROT 6.9 g/dl (6.4-8.2)
[2021-11-27 15:03] LABS: EPI CELLS 22 /uL (0-25.1); HYALINE CASTS 3 /uL (0-3.1); URINE APPEARANCE CLEAR; URINE BACTERIA 1156 /uL (0-1359); URINE BILIRUBIN NEGATIVE (NEGATIVE); URINE COLOR YELLOW; URINE GLUCOSE (UA) NEGATIVE (NEGATIVE); URINE KETONE NEGATIVE (NEGATIVE); URINE LEUK ESTERASE 2+ (NEGATIVE); URINE NITRITE NEGATIVE (NEGATIVE); URINE PROTEIN NEGATIVE (NEGATIVE); URINE RBC 37 /uL (0-23.9); URINE UROBILINOGEN 0.2 mg/dL (0.2-1.0); URINE WBC 176 /uL (0-25.8)
[2021-11-27] MEDS ORDERED: CEFTRIAXONE 1,000 MG in DEXTROSE 5%-WATER - 50 ML IVPB ONE (15:37)
[2021-11-27] MEDS ORDERED: CEFTRIAXONE 1 GM/50 ML BAG ONE (15:47)
[2021-11-27] MEDS ORDERED: HEPARIN NA (PORCINE) 5,000 UNITS/ML 1ML VIAL IVPUSH PRN ×4 (16:52→17:07)
[2021-11-27] MEDS ORDERED: HEPARIN NA (PORCINE) 5,000 UNITS/ML 1ML VIAL IVPUSH ONE ×2 (16:52→17:07)
[2021-11-27] MEDS ORDERED: HEPARIN INFUSION - 25,000 UNITS/500 ML INFUS.BAG IVPB SCH ×2 (17:00→17:15)
[2021-11-27] MEDS ORDERED: HEPARIN INFUSION - 25,000 UNITS/500 ML INFUS.BAG IVPB ONE (17:39)
[2021-11-27] MEDS ORDERED: HEPARIN NA (PORCINE) 5,000 UNITS/ML 1ML VIAL ONE (17:49)
[2021-11-27] MEDS ORDERED: oxyCODONE HCL 5 MG TABLET ONE (17:59)
[2021-11-27] MEDS ORDERED: oxyCODONE HCL 5 MG TABLET PO ONE (18:03)
[2021-11-27] MEDS ORDERED: ALBUTEROL SO4 HFA INHALER IH PRN (18:56)
[2021-11-27] MEDS ORDERED: traZODone HCL 50 MG TABLET (FP) ONE (21:19)
[2021-11-27] MEDS ORDERED: DULoxetine HCL 30 MG CAPSULE.DR PO ONE (21:19)
[2021-11-27] MEDS: MEMANTINE HCL 10 MG TABLET (FP) PO SCH (21:38)
[2021-11-27] MEDS: ENOXAPARIN NA (PORCINE) 100 MG/1 ML DISP.SYRIN SQ SCH (21:38)
[2021-11-27] MEDS: ATORVASTATIN CA 20 MG TABLET (FP) PO SCH (21:38)
[2021-11-27] MEDS: DULoxetine HCL 60 MG CAPSULE.DR PO SCH (21:39)
[2021-11-27] MEDS ORDERED: PATIENT'S OWN MEDICATION (NON-FORMULARY) (Lipase/Protease/Amylase [Zenpep Dr 40,000 Unit C PO SCH (22:00)
[2021-11-27] MEDS ORDERED: traZODone HCL 100 MG TABLET (FP) PO SCH (22:00)
[2021-11-28] MEDS: ENOXAPARIN NA (PORCINE) 100 MG/1 ML DISP.SYRIN SQ SCH ×2 (06:13→17:48)
[2021-11-28 07:43] LABS: HEMATOCRIT 38.2 % (32.4-45.2); HEMOGLOBIN 12.4 GM/dL (10.7-15.3); MCH 28.9 pg (25.7-33.7); MCHC 32.4 g/dl (32.0-36.0); MEAN CELL VOLUME 89.1 fl (80-96); MEAN PLT VOLUME 8.4 fl (7.5-11.1); PLATELET COUNT 225 10^3/uL (134-434); RBC 4.29 M/mm3 (3.60-5.2); WHITE BLOOD COUNT 6.4 K/mm3 (4.0-10.0)
[2021-11-28 08:07] LABS: ALBUMIN 2.9 g/dl (3.4-5.0); CALCIUM 9.6 mg/dL (8.5-10.1); MAGNESIUM 2.4 mg/dL (1.8-2.4)
[2021-11-28 08:08] LABS: BLOOD UREA NITROGEN 13.8 mg/dL (7-18)
[2021-11-28 08:10] LABS: CREATININE 0.9 mg/dL (0.55-1.3); PHOSPHOROUS 3.6 mg/dL (2.5-4.9)
[2021-11-28 08:12] LABS: BILIRUBIN,TOTAL 0.5 mg/dL (0.2-1); TOT PROT 6.4 g/dl (6.4-8.2)
[2021-11-28] MEDS ORDERED: DULoxetine HCL 30 MG CAPSULE.DR PO ONE ×2 (09:23→21:06)
[2021-11-28] MEDS ORDERED: DEXTROSE 5%-WATER - 50 ML IVPB ONE (09:24)
[2021-11-28] MEDS ORDERED: cefTRIAXone SODIUM 1 GM VIAL ONE (09:24)
[2021-11-28] MEDS: CEFTRIAXONE 1 GM in DEXTROSE 5%-WATER - 50 ML IVPB SCH (09:52)
[2021-11-28] MEDS: MEMANTINE HCL 10 MG TABLET (FP) PO SCH ×2 (09:52→21:11)
[2021-11-28] MEDS: DULoxetine HCL 60 MG CAPSULE.DR PO SCH ×2 (09:53→21:10)
[2021-11-28] MEDS: FLUTICASONE/UMECLIDIN/VILANTER(100-62.5-25 TRELEGY ELLIPTA) INAHLER IH SCH (09:55)
[2021-11-28] MEDS ORDERED: PATIENT'S OWN MEDICATION (NON-FORMULARY) (Lubiprostone [Amitiza] 24 MCG Capsule) PO SCH (10:00)
[2021-11-28] MEDS ORDERED: BREXPIPRAZOLE 2 MG PO SCH (10:00)
[2021-11-28] MEDS ORDERED: ENALAPRIL MALEATE 5 MG TABLET PO SCH (10:00)
[2021-11-28] MEDS: NICOTINE 21 MG/24 HOURS TOPICAL PATCH TD SCH (13:24)
[2021-11-28] MEDS ORDERED: traZODone HCL 100 MG TABLET (FP) PO SCH (14:18)
[2021-11-28] MEDS: oxyCODONE HCL 5 MG TABLET PO PRN (14:29)
[2021-11-28] MEDS: INSULIN SLIDING SCALE (NOVOLOG) 1 VIAL SQ SCH ×2 (16:55→21:11)
[2021-11-28] MEDS: traZODone HCL 50 MG TABLET (FP) PO SCH (21:10)
[2021-11-28] MEDS: ATORVASTATIN CA 20 MG TABLET (FP) PO SCH (21:10)
[2021-11-29] MEDS: INSULIN SLIDING SCALE (NOVOLOG) 1 VIAL SQ SCH ×4 (06:19→21:37)
[2021-11-29] MEDS: ENOXAPARIN NA (PORCINE) 100 MG/1 ML DISP.SYRIN SQ SCH ×2 (06:19→18:02)
[2021-11-29 07:56] LABS: BASO % 0.3 % (0-2.0); EOS % 1.7 % (0-4.5); HEMATOCRIT 38.6 % (32.4-45.2); HEMOGLOBIN 12.5 GM/dL (10.7-15.3); LYMPH % 8.2 % (8-40); MCH 28.8 pg (25.7-33.7); MCHC 32.2 g/dl (32.0-36.0); MEAN CELL VOLUME 89.4 fl (80-96); MEAN PLT VOLUME 8.8 fl (7.5-11.1); MONO % 4.6 % (3.8-10.2); NEUT % 85.2 % (42.8-82.8); PLATELET COUNT 231 10^3/uL (134-434); RBC 4.32 M/mm3 (3.60-5.2); RDW 14.8 % (11.6-15.6); WHITE BLOOD COUNT 7.3 K/mm3 (4.0-10.0)
[2021-11-29 08:19] LABS: ALBUMIN 2.9 g/dl (3.4-5.0); CALCIUM 9.7 mg/dL (8.5-10.1); MAGNESIUM 2.3 mg/dL (1.8-2.4)
[2021-11-29 08:20] LABS: BLOOD UREA NITROGEN 11.8 mg/dL (7-18)
[2021-11-29 08:22] LABS: CREATININE 0.9 mg/dL (0.55-1.3); PHOSPHOROUS 3.5 mg/dL (2.5-4.9)
[2021-11-29 08:23] LABS: BILIRUBIN,TOTAL 0.3 mg/dL (0.2-1)
[2021-11-29 08:24] LABS: TOT PROT 6.4 g/dl (6.4-8.2)
[2021-11-29] MEDS: NICOTINE 21 MG/24 HOURS TOPICAL PATCH TD SCH (10:01)
[2021-11-29] MEDS: MEMANTINE HCL 10 MG TABLET (FP) PO SCH ×2 (10:02→21:32)
[2021-11-29] MEDS: CEFTRIAXONE 1 GM in DEXTROSE 5%-WATER - 50 ML IVPB SCH (10:03)
[2021-11-29] MEDS: FLUTICASONE/UMECLIDIN/VILANTER(100-62.5-25 TRELEGY ELLIPTA) INAHLER IH SCH (10:05)
[2021-11-29] MEDS ORDERED: cefTRIAXone SODIUM 1 GM VIAL ONE (10:05)
[2021-11-29] MEDS ORDERED: DULoxetine HCL 30 MG CAPSULE.DR PO ONE ×2 (10:05→21:26)
[2021-11-29] MEDS ORDERED: DEXTROSE 5%-WATER - 50 ML IVPB ONE (10:06)
[2021-11-29] MEDS ORDERED: methaDONE HCL 10 MG TABLET ONE (10:48)
[2021-11-29] MEDS: DULoxetine HCL 60 MG CAPSULE.DR PO SCH ×2 (11:06→21:32)
[2021-11-29] MEDS: CYANOCOBALAMIN 1,000 MCG TABLET (FP) PO SCH (13:35)
[2021-11-29] MEDS: ERGOCALCIFEROL (VIT D2) 50,000 UNIT (1.25 MG) CAPSULE PO SCH (13:36)
[2021-11-29] MEDS: oxyCODONE HCL 5 MG TABLET PO PRN (13:57)
[2021-11-29] MEDS ORDERED: DOCUSATE SODIUM 100 MG CAPSULE (FP) PO ONE (20:51)
[2021-11-29] MEDS ORDERED: GLYCERIN 1 RECTAL SUPPOSITORY, ADULT PR ONE (20:51)
[2021-11-29] MEDS: clonazePAM 0.5 MG TABLET PO PRN (21:31)
[2021-11-29] MEDS: FAMOTIDINE 20 MG TABLET PO SCH (21:31)
[2021-11-29] MEDS: ATORVASTATIN CA 20 MG TABLET (FP) PO SCH (21:33)
[2021-11-29] MEDS: traZODone HCL 50 MG TABLET (FP) PO SCH (21:33)
[2021-11-30] MEDS: ENOXAPARIN NA (PORCINE) 100 MG/1 ML DISP.SYRIN SQ SCH (06:12)
[2021-11-30] MEDS: INSULIN SLIDING SCALE (NOVOLOG) 1 VIAL SQ SCH ×4 (06:13→21:45)
[2021-11-30] MEDS ORDERED: methaDONE HCL 10 MG TABLET PO SCH ×2 (06:30→06:34)
[2021-11-30] MEDS ORDERED: methaDONE HCL 10 MG TABLET ONE (06:50)
[2021-11-30 07:15] LABS: BASO % 0.4 % (0-2.0); EOS % 0.9 % (0-4.5); HEMATOCRIT 37.6 % (32.4-45.2); HEMOGLOBIN 12.6 GM/dL (10.7-15.3); LYMPH % 7.9 % (8-40); MCH 29.7 pg (25.7-33.7); MCHC 33.6 g/dl (32.0-36.0); MEAN CELL VOLUME 88.4 fl (80-96); MEAN PLT VOLUME 8.5 fl (7.5-11.1); MONO % 7.5 % (3.8-10.2); NEUT % 83.3 % (42.8-82.8); PLATELET COUNT 222 10^3/uL (134-434); RBC 4.25 M/mm3 (3.60-5.2); RDW 14.7 % (11.6-15.6); WHITE BLOOD COUNT 8.8 K/mm3 (4.0-10.0)
[2021-11-30 07:38] LABS: BLOOD UREA NITROGEN 11.8 mg/dL (7-18)
[2021-11-30 07:39] LABS: CALCIUM 9.5 mg/dL (8.5-10.1)
[2021-11-30 07:41] LABS: CREATININE 0.8 mg/dL (0.55-1.3); PHOSPHOROUS 3.3 mg/dL (2.5-4.9)
[2021-11-30] MEDS ORDERED: cefTRIAXone SODIUM 1 GM VIAL ONE (09:31)
[2021-11-30] MEDS ORDERED: DEXTROSE 5%-WATER - 50 ML IVPB ONE (09:32)
[2021-11-30] MEDS: CEFTRIAXONE 1 GM in DEXTROSE 5%-WATER - 50 ML IVPB SCH (09:36)
[2021-11-30] MEDS: CYANOCOBALAMIN 1,000 MCG TABLET (FP) PO SCH (09:36)
[2021-11-30] MEDS: NICOTINE 21 MG/24 HOURS TOPICAL PATCH TD SCH (09:36)
[2021-11-30] MEDS: DULoxetine HCL 30 MG CAPSULE.DR PO SCH ×2 (09:36→21:41)
[2021-11-30] MEDS: MEMANTINE HCL 10 MG TABLET (FP) PO SCH ×2 (09:36→21:41)
[2021-11-30] MEDS: FLUTICASONE/UMECLIDIN/VILANTER(100-62.5-25 TRELEGY ELLIPTA) INAHLER IH SCH (09:38)
[2021-11-30] MEDS ORDERED: HEPARIN NA (PORCINE) 5,000 UNITS/ML 1ML VIAL IVPUSH PRN (14:31)
[2021-11-30] MEDS: HEPARIN INFUSION - 25,000 UNITS/500 ML INFUS.BAG IVPB SCH ×2 (15:35→22:14)
[2021-11-30] MEDS: ATORVASTATIN CA 20 MG TABLET (FP) PO SCH (21:41)
[2021-11-30] MEDS: traZODone HCL 50 MG TABLET (FP) PO SCH (21:41)
[2021-11-30] MEDS: FAMOTIDINE 20 MG TABLET PO SCH (21:41)
[2021-11-30] MEDS: oxyCODONE HCL 5 MG TABLET PO PRN (21:51)
[2021-11-30] MEDS: HEPARIN NA (PORCINE) 5,000 UNITS/ML 1ML VIAL IVPUSH PRN (22:13)
[2021-12-01] MEDS ORDERED: methaDONE HCL 10 MG TABLET ONE (05:54)
[2021-12-01] MEDS: oxyCODONE HCL 5 MG TABLET PO PRN (05:57)
[2021-12-01] MEDS: INSULIN SLIDING SCALE (NOVOLOG) 1 VIAL SQ SCH ×4 (06:24→22:13)
[2021-12-01 06:41] LABS: BASO % 0.4 % (0-2.0); HEMATOCRIT 37.7 % (32.4-45.2); HEMOGLOBIN 12.2 GM/dL (10.7-15.3); LYMPH % 7.2 % (8-40); MCH 28.8 pg (25.7-33.7); MCHC 32.4 g/dl (32.0-36.0); MEAN PLT VOLUME 8.7 fl (7.5-11.1); MONO % 6.9 % (3.8-10.2); NEUT % 84.5 % (42.8-82.8); PLATELET COUNT 223 10^3/uL (134-434); RBC 4.23 M/mm3 (3.60-5.2); RDW 14.7 % (11.6-15.6); WHITE BLOOD COUNT 10.4 K/mm3 (4.0-10.0)
[2021-12-01 07:07] LABS: BLOOD UREA NITROGEN 13.7 mg/dL (7-18); CALCIUM 9.4 mg/dL (8.5-10.1)
[2021-12-01 07:08] LABS: MAGNESIUM 2.1 mg/dL (1.8-2.4)
[2021-12-01 07:10] LABS: PHOSPHOROUS 3.8 mg/dL (2.5-4.9)
[2021-12-01 07:11] LABS: CREATININE 0.8 mg/dL (0.55-1.3)
[2021-12-01] MEDS ORDERED: GLYCERIN 1 RECTAL SUPPOSITORY, ADULT PR ONE (08:50)
[2021-12-01] MEDS ORDERED: cefTRIAXone SODIUM 1 GM VIAL ONE (09:07)
[2021-12-01] MEDS ORDERED: DEXTROSE 5%-WATER - 50 ML IVPB ONE (09:07)
[2021-12-01] MEDS: CEFTRIAXONE 1 GM in DEXTROSE 5%-WATER - 50 ML IVPB SCH (09:26)
[2021-12-01] MEDS: MEMANTINE HCL 10 MG TABLET (FP) PO SCH ×2 (09:26→22:13)
[2021-12-01] MEDS: DULoxetine HCL 30 MG CAPSULE.DR PO SCH ×2 (09:26→22:13)
[2021-12-01] MEDS: CYANOCOBALAMIN 1,000 MCG TABLET (FP) PO SCH (09:26)
[2021-12-01] MEDS: NICOTINE 21 MG/24 HOURS TOPICAL PATCH TD SCH (09:27)
[2021-12-01] MEDS: FLUTICASONE/UMECLIDIN/VILANTER(100-62.5-25 TRELEGY ELLIPTA) INAHLER IH SCH (09:29)
[2021-12-01] MEDS ORDERED: ALBUTEROL SO4 HFA INHALER IH SCH (10:45)
[2021-12-01] MEDS: HEPARIN INFUSION - 25,000 UNITS/500 ML INFUS.BAG IVPB SCH (16:05)
[2021-12-01] MEDS: traZODone HCL 50 MG TABLET (FP) PO SCH (22:13)
[2021-12-01] MEDS: FAMOTIDINE 20 MG TABLET PO SCH (22:13)
[2021-12-01] MEDS: ATORVASTATIN CA 20 MG TABLET (FP) PO SCH (22:13)
[2021-12-01] MEDS: ALBUTEROL SO4 HFA INHALER IH SCH (22:13)
[2021-12-02] MEDS ORDERED: methaDONE HCL 10 MG TABLET ONE (06:18)
[2021-12-02] MEDS: INSULIN SLIDING SCALE (NOVOLOG) 1 VIAL SQ SCH ×4 (06:22→21:42)
[2021-12-02 07:26] LABS: BASO % 0.3 % (0-2.0); EOS % 0.9 % (0-4.5); HEMATOCRIT 33.3 % (32.4-45.2); HEMOGLOBIN 11.3 GM/dL (10.7-15.3); LYMPH % 5.1 % (8-40); MCH 29.8 pg (25.7-33.7); MCHC 33.8 g/dl (32.0-36.0); MEAN CELL VOLUME 88.1 fl (80-96); MEAN PLT VOLUME 8.3 fl (7.5-11.1); MONO % 6.9 % (3.8-10.2); NEUT % 86.8 % (42.8-82.8); PLATELET COUNT 194 10^3/uL (134-434); RBC 3.78 M/mm3 (3.60-5.2); RDW 14.5 % (11.6-15.6); WHITE BLOOD COUNT 9.9 K/mm3 (4.0-10.0)
[2021-12-02 07:56] LABS: CALCIUM 9.1 mg/dL (8.5-10.1)
[2021-12-02 07:57] LABS: BLOOD UREA NITROGEN 11.8 mg/dL (7-18)
[2021-12-02 08:00] LABS: CREATININE 0.8 mg/dL (0.55-1.3); PHOSPHOROUS 3.7 mg/dL (2.5-4.9)
[2021-12-02] MEDS ORDERED: DEXTROSE 5%-WATER - 50 ML IVPB ONE (09:34)
[2021-12-02] MEDS ORDERED: cefTRIAXone SODIUM 1 GM VIAL ONE (09:34)
[2021-12-02] MEDS: DULoxetine HCL 30 MG CAPSULE.DR PO SCH ×2 (09:54→21:38)
[2021-12-02] MEDS: CYANOCOBALAMIN 1,000 MCG TABLET (FP) PO SCH (09:54)
[2021-12-02] MEDS: NICOTINE 21 MG/24 HOURS TOPICAL PATCH TD SCH (09:54)
[2021-12-02] MEDS: MEMANTINE HCL 10 MG TABLET (FP) PO SCH ×2 (09:54→21:38)
[2021-12-02] MEDS: ALBUTEROL SO4 HFA INHALER IH SCH ×2 (09:54→21:40)
[2021-12-02] MEDS: CEFTRIAXONE 1 GM in DEXTROSE 5%-WATER - 50 ML IVPB SCH (09:55)
[2021-12-02] MEDS: FLUTICASONE/UMECLIDIN/VILANTER(100-62.5-25 TRELEGY ELLIPTA) INAHLER IH SCH (09:55)
[2021-12-02] MEDS: POLYETHYLENE GLYCOL (HEALTHYLAX) 3350 17 GM PACKET PO SCH (09:57)
[2021-12-02] MEDS: HEPARIN NA (PORCINE) 5,000 UNITS/ML 1ML VIAL IVPUSH PRN (11:25)
[2021-12-02] MEDS: HEPARIN INFUSION - 25,000 UNITS/500 ML INFUS.BAG IVPB SCH (17:01)
[2021-12-02] MEDS: ATORVASTATIN CA 20 MG TABLET (FP) PO SCH (21:38)
[2021-12-02] MEDS: APIXABAN 5 MG TABLET PO SCH (21:38)
[2021-12-02] MEDS: SENNOSIDES 8.6MG TABLET (FP) PO SCH (21:38)
[2021-12-02] MEDS: traZODone HCL 50 MG TABLET (FP) PO SCH (21:38)
[2021-12-02] MEDS: FAMOTIDINE 20 MG TABLET PO SCH (21:38)
[2021-12-03] MEDS ORDERED: methaDONE HCL 10 MG TABLET ONE (06:22)
[2021-12-03] MEDS: INSULIN SLIDING SCALE (NOVOLOG) 1 VIAL SQ SCH ×4 (06:37→21:41)
[2021-12-03 07:36] LABS: BASO % 0.2 % (0-2.0); EOS % 2.4 % (0-4.5); HEMATOCRIT 34.5 % (32.4-45.2); HEMOGLOBIN 11.3 GM/dL (10.7-15.3); LYMPH % 4.4 % (8-40); MCH 29.1 pg (25.7-33.7); MCHC 32.7 g/dl (32.0-36.0); MEAN PLT VOLUME 8.8 fl (7.5-11.1); MONO % 7.5 % (3.8-10.2); NEUT % 85.5 % (42.8-82.8); PLATELET COUNT 193 10^3/uL (134-434); RBC 3.88 M/mm3 (3.60-5.2); RDW 14.3 % (11.6-15.6); WHITE BLOOD COUNT 9.3 K/mm3 (4.0-10.0)
[2021-12-03 07:53] LABS: BLOOD UREA NITROGEN 8.9 mg/dL (7-18); CALCIUM 9.2 mg/dL (8.5-10.1); MAGNESIUM 2.1 mg/dL (1.8-2.4)
[2021-12-03 07:56] LABS: CREATININE 0.7 mg/dL (0.55-1.3); PHOSPHOROUS 4.1 mg/dL (2.5-4.9)
[2021-12-03] MEDS: MEMANTINE HCL 10 MG TABLET (FP) PO SCH ×2 (09:55→21:28)
[2021-12-03] MEDS: CYANOCOBALAMIN 1,000 MCG TABLET (FP) PO SCH (09:55)
[2021-12-03] MEDS: APIXABAN 5 MG TABLET PO SCH ×2 (09:55→21:27)
[2021-12-03] MEDS: DULoxetine HCL 30 MG CAPSULE.DR PO SCH ×2 (09:55→21:26)
[2021-12-03] MEDS: POLYETHYLENE GLYCOL (HEALTHYLAX) 3350 17 GM PACKET PO SCH (09:56)
[2021-12-03] MEDS: FLUTICASONE/UMECLIDIN/VILANTER(100-62.5-25 TRELEGY ELLIPTA) INAHLER IH SCH (09:56)
[2021-12-03] MEDS: NICOTINE 21 MG/24 HOURS TOPICAL PATCH TD SCH (09:56)
[2021-12-03] MEDS: ALBUTEROL SO4 HFA INHALER IH SCH (09:56)
[2021-12-03] MEDS ORDERED: ALBUTEROL SO4 0.083% IH SOL 2.5 MG/3 ML VIAL.NEB. NEB PRN (10:04)
[2021-12-03] MEDS ORDERED: ALBUTEROL SO4 2.5/IPRATROPIUM 0.5 INH SOL 3 ML VIAL.NEB. NEB SCH (12:00)
[2021-12-03] MEDS: traZODone HCL 50 MG TABLET (FP) PO SCH (21:27)
[2021-12-03] MEDS: clonazePAM 0.5 MG TABLET PO PRN (21:28)
[2021-12-03] MEDS: ATORVASTATIN CA 20 MG TABLET (FP) PO SCH (21:28)
[2021-12-03] MEDS: FAMOTIDINE 20 MG TABLET PO SCH (22:33)
[2021-12-03] MEDS: SENNOSIDES 8.6MG TABLET (FP) PO SCH (22:33)
[2021-12-04] MEDS ORDERED: methaDONE HCL 10 MG TABLET ONE (06:01)
[2021-12-04] MEDS: INSULIN SLIDING SCALE (NOVOLOG) 1 VIAL SQ SCH ×2 (06:25→22:00)
[2021-12-04 08:07] LABS: BASO % 0.3 % (0-2.0); EOS % 3.2 % (0-4.5); HEMATOCRIT 34.6 % (32.4-45.2); HEMOGLOBIN 11.3 GM/dL (10.7-15.3); LYMPH % 6.9 % (8-40); MCH 28.9 pg (25.7-33.7); MCHC 32.7 g/dl (32.0-36.0); MEAN CELL VOLUME 88.4 fl (80-96); MEAN PLT VOLUME 8.4 fl (7.5-11.1); MONO % 7.2 % (3.8-10.2); NEUT % 82.4 % (42.8-82.8); PLATELET COUNT 228 10^3/uL (134-434); RBC 3.92 M/mm3 (3.60-5.2); RDW 14.5 % (11.6-15.6); WHITE BLOOD COUNT 8.4 K/mm3 (4.0-10.0)
[2021-12-04 08:32] LABS: BLOOD UREA NITROGEN 10.4 mg/dL (7-18); CALCIUM 9.5 mg/dL (8.5-10.1)
[2021-12-04 08:35] LABS: CREATININE 0.8 mg/dL (0.55-1.3); PHOSPHOROUS 3.4 mg/dL (2.5-4.9)
[2021-12-04] MEDS: POLYETHYLENE GLYCOL (HEALTHYLAX) 3350 17 GM PACKET PO SCH (10:17)
[2021-12-04] MEDS: DULoxetine HCL 30 MG CAPSULE.DR PO SCH ×2 (10:17→21:16)
[2021-12-04] MEDS: APIXABAN 5 MG TABLET PO SCH ×2 (10:18→21:17)
[2021-12-04] MEDS: FLUTICASONE/UMECLIDIN/VILANTER(100-62.5-25 TRELEGY ELLIPTA) INAHLER IH SCH (10:18)
[2021-12-04] MEDS: NICOTINE 21 MG/24 HOURS TOPICAL PATCH TD SCH (10:18)
[2021-12-04] MEDS: MEMANTINE HCL 10 MG TABLET (FP) PO SCH ×2 (10:18→21:16)
[2021-12-04] MEDS: CYANOCOBALAMIN 1,000 MCG TABLET (FP) PO SCH (10:18)
[2021-12-04] MEDS: GLYCERIN 1 RECTAL SUPPOSITORY, ADULT PR PRN (18:18)
[2021-12-04] MEDS: clonazePAM 0.5 MG TABLET PO PRN ×2 (18:18→21:18)
[2021-12-04] MEDS: traZODone HCL 50 MG TABLET (FP) PO SCH (21:16)
[2021-12-04] MEDS: SENNOSIDES 8.6MG TABLET (FP) PO SCH (21:16)
[2021-12-04] MEDS: FAMOTIDINE 20 MG TABLET PO SCH (21:17)
[2021-12-04] MEDS: ATORVASTATIN CA 20 MG TABLET (FP) PO SCH (21:18)
[2021-12-05] MEDS ORDERED: methaDONE HCL 10 MG TABLET ONE (04:59)
[2021-12-05] MEDS: POLYETHYLENE GLYCOL (HEALTHYLAX) 3350 17 GM PACKET PO SCH ×3 (06:30→21:40)
[2021-12-05] MEDS: INSULIN SLIDING SCALE (NOVOLOG) 1 VIAL SQ SCH ×2 (06:34→21:49)
[2021-12-05 07:10] LABS: BASO % 0.6 % (0-2.0); EOS % 5.3 % (0-4.5); HEMATOCRIT 33.1 % (32.4-45.2); HEMOGLOBIN 10.7 GM/dL (10.7-15.3); LYMPH % 11.3 % (8-40); MCH 28.7 pg (25.7-33.7); MCHC 32.2 g/dl (32.0-36.0); MEAN CELL VOLUME 89.3 fl (80-96); MEAN PLT VOLUME 8.6 fl (7.5-11.1); MONO % 9.4 % (3.8-10.2); NEUT % 73.4 % (42.8-82.8); PLATELET COUNT 205 10^3/uL (134-434); RBC 3.71 M/mm3 (3.60-5.2); RDW 14.4 % (11.6-15.6); WHITE BLOOD COUNT 5.3 K/mm3 (4.0-10.0)
[2021-12-05 07:30] LABS: BLOOD UREA NITROGEN 10.2 mg/dL (7-18); CALCIUM 9.3 mg/dL (8.5-10.1); MAGNESIUM 2.3 mg/dL (1.8-2.4)
[2021-12-05 07:33] LABS: PHOSPHOROUS 3.6 mg/dL (2.5-4.9)
[2021-12-05 07:34] LABS: CREATININE 0.7 mg/dL (0.55-1.3)
[2021-12-05] MEDS: MEMANTINE HCL 10 MG TABLET (FP) PO SCH (10:03)
[2021-12-05] MEDS: DULoxetine HCL 30 MG CAPSULE.DR PO SCH ×2 (10:03→21:38)
[2021-12-05] MEDS: APIXABAN 5 MG TABLET PO SCH ×2 (10:03→21:39)
[2021-12-05] MEDS: CYANOCOBALAMIN 1,000 MCG TABLET (FP) PO SCH (10:03)
[2021-12-05] MEDS: NICOTINE 21 MG/24 HOURS TOPICAL PATCH TD SCH (10:04)
[2021-12-05] MEDS: FLUTICASONE/UMECLIDIN/VILANTER(100-62.5-25 TRELEGY ELLIPTA) INAHLER IH SCH (10:05)
[2021-12-05] MEDS: FAMOTIDINE 20 MG TABLET PO SCH (21:37)
[2021-12-05] MEDS: traZODone HCL 50 MG TABLET (FP) PO SCH (21:37)
[2021-12-05] MEDS: ATORVASTATIN CA 20 MG TABLET (FP) PO SCH (21:38)
[2021-12-05] MEDS: SENNOSIDES 8.6MG TABLET (FP) PO SCH (21:40)
[2021-12-05] MEDS: clonazePAM 0.5 MG TABLET PO PRN (21:41)
[2021-12-06] MEDS ORDERED: methaDONE HCL 10 MG TABLET ONE ×2 (03:51→03:54)
[2021-12-06 07:02] LABS: BASO % 0.4 % (0-2.0); EOS % 5.2 % (0-4.5); HEMATOCRIT 33.5 % (32.4-45.2); LYMPH % 11.9 % (8-40); MCHC 32.9 g/dl (32.0-36.0); MEAN CELL VOLUME 88.3 fl (80-96); MEAN PLT VOLUME 8.3 fl (7.5-11.1); MONO % 7.8 % (3.8-10.2); NEUT % 74.7 % (42.8-82.8); PLATELET COUNT 211 10^3/uL (134-434); RBC 3.79 M/mm3 (3.60-5.2); RDW 14.6 % (11.6-15.6); WHITE BLOOD COUNT 6.3 K/mm3 (4.0-10.0)
[2021-12-06 07:29] LABS: CALCIUM 9.2 mg/dL (8.5-10.1)
[2021-12-06] MEDS: INSULIN SLIDING SCALE (NOVOLOG) 1 VIAL SQ SCH ×2 (07:29→21:47)
[2021-12-06 07:30] LABS: BLOOD UREA NITROGEN 12.6 mg/dL (7-18); MAGNESIUM 2.1 mg/dL (1.8-2.4)
[2021-12-06] MEDS: MEMANTINE HCL 10 MG TABLET (FP) PO SCH ×3 (07:31→21:38)
[2021-12-06 07:33] LABS: CREATININE 0.7 mg/dL (0.55-1.3); PHOSPHOROUS 3.6 mg/dL (2.5-4.9)
[2021-12-06 07:34] LABS: BILIRUBIN,TOTAL 0.3 mg/dL (0.2-1); TOT PROT 5.7 g/dl (6.4-8.2)
[2021-12-06 07:58] LABS: ALBUMIN 2.2 g/dl (3.4-5.0)
[2021-12-06] MEDS: ERGOCALCIFEROL (VIT D2) 50,000 UNIT (1.25 MG) CAPSULE PO SCH (10:07)
[2021-12-06] MEDS: APIXABAN 5 MG TABLET PO SCH ×2 (10:07→21:37)
[2021-12-06] MEDS: CYANOCOBALAMIN 1,000 MCG TABLET (FP) PO SCH (10:07)
[2021-12-06] MEDS: POLYETHYLENE GLYCOL (HEALTHYLAX) 3350 17 GM PACKET PO SCH ×2 (10:08→21:38)
[2021-12-06] MEDS: DULoxetine HCL 30 MG CAPSULE.DR PO SCH ×2 (10:08→21:37)
[2021-12-06] MEDS: NICOTINE 21 MG/24 HOURS TOPICAL PATCH TD SCH (10:08)
[2021-12-06] MEDS: FLUTICASONE/UMECLIDIN/VILANTER(100-62.5-25 TRELEGY ELLIPTA) INAHLER IH SCH (10:09)
[2021-12-06] MEDS: ATORVASTATIN CA 20 MG TABLET (FP) PO SCH (21:37)
[2021-12-06] MEDS: traZODone HCL 50 MG TABLET (FP) PO SCH (21:37)
[2021-12-06] MEDS: FAMOTIDINE 20 MG TABLET PO SCH (21:38)
[2021-12-06] MEDS: SENNOSIDES 8.6MG TABLET (FP) PO SCH (21:38)
[2021-12-07] MEDS ORDERED: methaDONE HCL 10 MG TABLET ONE (05:07)
[2021-12-07] MEDS: INSULIN SLIDING SCALE (NOVOLOG) 1 VIAL SQ SCH ×2 (06:12→23:23)
[2021-12-07] MEDS: NICOTINE 21 MG/24 HOURS TOPICAL PATCH TD SCH (09:52)
[2021-12-07] MEDS: MEMANTINE HCL 10 MG TABLET (FP) PO SCH ×2 (09:52→21:35)
[2021-12-07] MEDS: DULoxetine HCL 30 MG CAPSULE.DR PO SCH ×2 (09:53→21:33)
[2021-12-07] MEDS: CYANOCOBALAMIN 1,000 MCG TABLET (FP) PO SCH (09:53)
[2021-12-07] MEDS: POLYETHYLENE GLYCOL (HEALTHYLAX) 3350 17 GM PACKET PO SCH ×2 (09:53→21:32)
[2021-12-07] MEDS: APIXABAN 5 MG TABLET PO SCH ×2 (09:53→21:33)
[2021-12-07] MEDS: FLUTICASONE/UMECLIDIN/VILANTER(100-62.5-25 TRELEGY ELLIPTA) INAHLER IH SCH (09:54)
[2021-12-07] MEDS ORDERED: oxyCODONE HCL 5 MG TABLET PO PRN (14:07)
[2021-12-07] MEDS: traZODone HCL 50 MG TABLET (FP) PO SCH (21:33)
[2021-12-07] MEDS: FAMOTIDINE 20 MG TABLET PO SCH (21:33)
[2021-12-07] MEDS: SENNOSIDES 8.6MG TABLET (FP) PO SCH (21:33)
[2021-12-07] MEDS: ATORVASTATIN CA 20 MG TABLET (FP) PO SCH (21:33)
[2021-12-08] MEDS ORDERED: methaDONE HCL 10 MG TABLET ONE (05:42)
[2021-12-08] MEDS: INSULIN SLIDING SCALE (NOVOLOG) 1 VIAL SQ SCH ×2 (06:45→21:45)
[2021-12-08 07:59] LABS: BASO % 0.7 % (0-2.0); EOS % 4.8 % (0-4.5); HEMATOCRIT 35.7 % (32.4-45.2); HEMOGLOBIN 11.6 GM/dL (10.7-15.3); LYMPH % 11.6 % (8-40); MCHC 32.6 g/dl (32.0-36.0); MEAN CELL VOLUME 88.9 fl (80-96); MEAN PLT VOLUME 8.5 fl (7.5-11.1); NEUT % 75.9 % (42.8-82.8); PLATELET COUNT 230 10^3/uL (134-434); RBC 4.02 M/mm3 (3.60-5.2); RDW 14.7 % (11.6-15.6); WHITE BLOOD COUNT 6.7 K/mm3 (4.0-10.0)
[2021-12-08 08:37] LABS: CALCIUM 9.2 mg/dL (8.5-10.1)
[2021-12-08 08:38] LABS: ALBUMIN 2.6 g/dl (3.4-5.0); MAGNESIUM 2.2 mg/dL (1.8-2.4)
[2021-12-08 08:41] LABS: CREATININE 0.7 mg/dL (0.55-1.3); PHOSPHOROUS 3.6 mg/dL (2.5-4.9)
[2021-12-08 08:42] LABS: BILIRUBIN,TOTAL 0.5 mg/dL (0.2-1); TOT PROT 6.2 g/dl (6.4-8.2)
[2021-12-08] MEDS: POLYETHYLENE GLYCOL (HEALTHYLAX) 3350 17 GM PACKET PO SCH ×2 (10:48→21:22)
[2021-12-08] MEDS: NICOTINE 21 MG/24 HOURS TOPICAL PATCH TD SCH (10:48)
[2021-12-08] MEDS: DULoxetine HCL 30 MG CAPSULE.DR PO SCH ×2 (10:49→21:22)
[2021-12-08] MEDS: APIXABAN 5 MG TABLET PO SCH ×2 (10:49→21:21)
[2021-12-08] MEDS: MEMANTINE HCL 10 MG TABLET (FP) PO SCH ×2 (10:49→21:21)
[2021-12-08] MEDS: CYANOCOBALAMIN 1,000 MCG TABLET (FP) PO SCH (10:49)
[2021-12-08] MEDS: FLUTICASONE/UMECLIDIN/VILANTER(100-62.5-25 TRELEGY ELLIPTA) INAHLER IH SCH (10:50)
[2021-12-08] MEDS ORDERED: clonazePAM 0.5 MG TABLET PO ONE (20:50)
[2021-12-08] MEDS: SENNOSIDES 8.6MG TABLET (FP) PO SCH (21:21)
[2021-12-08] MEDS: traZODone HCL 50 MG TABLET (FP) PO SCH (21:22)
[2021-12-08] MEDS: FAMOTIDINE 20 MG TABLET PO SCH (21:22)
[2021-12-08] MEDS: ATORVASTATIN CA 20 MG TABLET (FP) PO SCH (21:22)
[2021-12-09] MEDS ORDERED: methaDONE HCL 10 MG TABLET ONE (06:29)
[2021-12-09] MEDS: INSULIN SLIDING SCALE (NOVOLOG) 1 VIAL SQ SCH ×2 (06:40→21:51)
[2021-12-09 09:23] LABS: BASO % 0.6 % (0-2.0); HEMATOCRIT 38.6 % (32.4-45.2); HEMOGLOBIN 12.2 GM/dL (10.7-15.3); LYMPH % 12.9 % (8-40); MCH 28.3 pg (25.7-33.7); MCHC 31.6 g/dl (32.0-36.0); MEAN CELL VOLUME 89.4 fl (80-96); MEAN PLT VOLUME 8.3 fl (7.5-11.1); MONO % 6.7 % (3.8-10.2); NEUT % 74.8 % (42.8-82.8); PLATELET COUNT 236 10^3/uL (134-434); RBC 4.32 M/mm3 (3.60-5.2); RDW 14.6 % (11.6-15.6); WHITE BLOOD COUNT 6.4 K/mm3 (4.0-10.0)
[2021-12-09 09:46] LABS: CALCIUM 9.6 mg/dL (8.5-10.1)
[2021-12-09 09:47] LABS: ALBUMIN 2.7 g/dl (3.4-5.0); BLOOD UREA NITROGEN 10.1 mg/dL (7-18); MAGNESIUM 2.4 mg/dL (1.8-2.4)
[2021-12-09 09:50] LABS: CREATININE 0.8 mg/dL (0.55-1.3); PHOSPHOROUS 3.9 mg/dL (2.5-4.9)
[2021-12-09 09:51] LABS: BILIRUBIN,TOTAL 0.3 mg/dL (0.2-1); TOT PROT 6.5 g/dl (6.4-8.2)
[2021-12-09] MEDS: MEMANTINE HCL 10 MG TABLET (FP) PO SCH ×2 (10:43→21:51)
[2021-12-09] MEDS: CYANOCOBALAMIN 1,000 MCG TABLET (FP) PO SCH (10:43)
[2021-12-09] MEDS: DULoxetine HCL 30 MG CAPSULE.DR PO SCH ×2 (10:43→21:51)
[2021-12-09] MEDS: NICOTINE 21 MG/24 HOURS TOPICAL PATCH TD SCH (10:44)
[2021-12-09] MEDS: POLYETHYLENE GLYCOL (HEALTHYLAX) 3350 17 GM PACKET PO SCH ×2 (10:44→21:51)
[2021-12-09] MEDS: APIXABAN 5 MG TABLET PO SCH (10:44)
[2021-12-09] MEDS: FLUTICASONE/UMECLIDIN/VILANTER(100-62.5-25 TRELEGY ELLIPTA) INAHLER IH SCH (10:46)
[2021-12-09] MEDS ORDERED: oxyCODONE HCL 5 MG TABLET PO PRN (12:29)
[2021-12-09] MEDS ORDERED: clonazePAM 0.5 MG TABLET PO ONE (17:06)
[2021-12-09] MEDS: traZODone HCL 50 MG TABLET (FP) PO SCH (21:51)
[2021-12-09] MEDS: ATORVASTATIN CA 20 MG TABLET (FP) PO SCH (21:51)
[2021-12-09] MEDS: FAMOTIDINE 20 MG TABLET PO SCH (21:51)
[2021-12-09] MEDS: SENNOSIDES 8.6MG TABLET (FP) PO SCH (21:51)
[2021-12-10] MEDS ORDERED: methaDONE HCL 10 MG TABLET ONE (06:34)
[2021-12-10] MEDS: INSULIN SLIDING SCALE (NOVOLOG) 1 VIAL SQ SCH (06:42)
[2021-12-10] MEDS: POLYETHYLENE GLYCOL (HEALTHYLAX) 3350 17 GM PACKET PO SCH (10:24)
[2021-12-10] MEDS: CYANOCOBALAMIN 1,000 MCG TABLET (FP) PO SCH (10:26)
[2021-12-10] MEDS: MEMANTINE HCL 10 MG TABLET (FP) PO SCH (10:26)
[2021-12-10] MEDS: DULoxetine HCL 30 MG CAPSULE.DR PO SCH (10:26)
[2021-12-10] MEDS: FLUTICASONE/UMECLIDIN/VILANTER(100-62.5-25 TRELEGY ELLIPTA) INAHLER IH SCH (10:27)
[2021-12-10] MEDS: NICOTINE 21 MG/24 HOURS TOPICAL PATCH TD SCH (10:27)
[2021-12-10] MEDS ORDERED: clonazePAM 0.5 MG TABLET PO PRN (10:37)
[2021-12-10] MEDS ORDERED: APIXABAN 5 MG TABLET PO SCH (11:00)
[2021-12-10 12:38] VITALS: TEMP 98.7
[2021-12-10] MEDS: GLYCERIN 1 RECTAL SUPPOSITORY, ADULT PR PRN (13:16)
[2021-12-10 18:03] VITALS: BP 124/71; PULSE 84
== END 2021-12-10 19:44 | disposition home or self-care (01) | DRG 175 ==
LOC: JER 11:30 → JERBED 15:39 → J4W 18:45
PROVIDERS: ADMIT Internal Medicine; ATTEND Internal Medicine
PROC: 06H03DZ Insertion of Intraluminal Device into Inferior Vena Cava, Percutaneous Approach (ICD-10-PCS; principal; 2021-12-01)
DX: I26.09 Other pulmonary embolism with acute cor pulmonale (principal); C34.12 Malignant neoplasm of upper lobe, left bronchus or lung; C79.31 Secondary malignant neoplasm of brain; N39.0 Urinary tract infection, site not specified; I82.401 Acute embolism and thrombosis of unspecified deep veins of right lower extremity; I10 Essential (primary) hypertension; J44.9 Chronic obstructive pulmonary disease, unspecified; E11.9 Type 2 diabetes mellitus without complications; E78.5 Hyperlipidemia, unspecified; F32.A Depression, unspecified; K59.00 Constipation, unspecified; G47.00 Insomnia, unspecified; F17.210 Nicotine dependence, cigarettes, uncomplicated; M54.10 Radiculopathy, site unspecified; R62.7 Adult failure to thrive; Z68.32 Body mass index [BMI] 32.0-32.9, adult; B96.20 Unspecified Escherichia coli [E. coli] as the cause of diseases classified elsewhere; M48.00 Spinal stenosis, site unspecified; F41.8 Other specified anxiety disorders; Z86.718 Personal history of other venous thrombosis and embolism
CPT/HCPCS: 36415; 37191; 70450-TC; 71045-TC-FY; 71275-TC; 80048; 80053; 81003; 82803; 82962; 83735; 84100; 84484; 85025; 85027; 85610; 85730; 87040; 87086; 87186; 87804; 93005; 93010; 93306-TC; 93970-TC; 94010; 94761; 97116-GP; 97162-GP; 99291; C1769; C1880; C9803-CS; J1644; Q9967; U0003; U0005

== ENCOUNTER 2022-12-09 14:57 | Emergency (ER) | payer OTHER ==
[2022-12-09 15:06] VITALS: BP 139/95; PULSE 82; RESP 18; TEMP 98.5; BMI 33.6
[2022-12-09] MEDS: ALBUTEROL SO4 2.5/IPRATROPIUM 0.5 INH SOL 3 ML VIAL.NEB. NEB SCH ×2 (15:57→15:58)
[2022-12-09] MEDS ORDERED: ALBUTEROL SO4 2.5/IPRATROPIUM 0.5 INH SOL 3 ML VIAL.NEB. NEB ONE (16:02)
[2022-12-09 16:11] LABS: THROAT:GRP A STREP NOT DETECTED (NOTDETECTED)
== END 2022-12-09 16:46 | disposition home or self-care (01) ==
LOC: JERFT 14:57
PROC: 3E0F7GC Introduction of Other Therapeutic Substance into Respiratory Tract, Via Natural or Artificial Opening (ICD-10-PCS; principal; 2022-12-09)
DX: J20.9 Acute bronchitis, unspecified (principal); J44.9 Chronic obstructive pulmonary disease, unspecified; Z20.822 Contact with and (suspected) exposure to COVID-19
CPT/HCPCS: 0241U-QW; 87651; 99283-25

== ENCOUNTER 2022-12-15 15:28 | Observation (INO) | payer OTHER ==
[2022-12-15 15:37] VITALS: BMI 37.5
[2022-12-15] MEDS ORDERED: methylPREDNISolone NA SUCC 125 MG/2 ML VIAL IVPUSH ONE (16:03)
[2022-12-15] MEDS ORDERED: ALBUTEROL SO4 2.5/IPRATROPIUM 0.5 INH SOL 3 ML VIAL.NEB. NEB ONE (16:20)
[2022-12-15] MEDS ORDERED: methylPREDNISolone NA SUCC 125 MG/2 ML VIAL ONE (16:21)
[2022-12-15 16:25] LABS: VENOUS BASE EXCESS 1.9 mmol/L (-2-2); VENOUS O2 SATURATION 20.2 % (70-80); VENOUS PCO2 57.1 mmHg (38-52); VENOUS PH 7.328 (7.310-7.410)
[2022-12-15 16:28] LABS: BASO % 0.9 % (0-2.0); EOS % 1.2 % (0-4.5); HEMATOCRIT 41.7 % (32.4-45.2); HEMOGLOBIN 13.8 GM/dL (10.7-15.3); LYMPH % 18.8 % (8-40); MCH 29.5 pg (25.7-33.7); MCHC 33.2 g/dl (32.0-36.0); MEAN CELL VOLUME 88.9 fl (80-96); MEAN PLT VOLUME 8.4 fl (7.5-11.1); MONO % 8.2 % (3.8-10.2); NEUT % 70.9 % (42.8-82.8); PLATELET COUNT 279 10^3/uL (134-434); RBC 4.69 M/mm3 (3.60-5.2); RDW 15.6 % (11.6-15.6); WHITE BLOOD COUNT 8.1 K/mm3 (4.0-10.0)
[2022-12-15] MEDS: ALBUTEROL SO4 2.5/IPRATROPIUM 0.5 INH SOL 3 ML VIAL.NEB. NEB SCH ×2 (16:31→16:32)
[2022-12-15 16:38] LABS: THROAT:GRP A STREP NOT DETECTED (NOTDETECTED)
[2022-12-15 16:46] LABS: POTASSIUM 4.4 mmol/L (3.5-5.1)
[2022-12-15 16:48] LABS: ALBUMIN 3.3 g/dl (3.4-5.0); CALCIUM 9.8 mg/dL (8.5-10.1); MAGNESIUM 1.9 mg/dL (1.8-2.4)
[2022-12-15 16:49] LABS: BLOOD UREA NITROGEN 22.1 mg/dL (7-18)
[2022-12-15 16:52] LABS: CREATININE 1.2 mg/dL (0.55-1.3)
[2022-12-15 16:53] LABS: BILIRUBIN,TOTAL 0.4 mg/dL (0.2-1); TOT PROT 6.6 g/dl (6.4-8.2)
[2022-12-15] MEDS ORDERED: CEFTRIAXONE 1,000 MG in DEXTROSE 5%-WATER - 50 ML IVPB ONE (17:24)
[2022-12-15] MEDS ORDERED: DOXYCYCLINE INJECTION 100 MG in DEXTROSE 5%-WATER 100 ML IVPB ONE (17:24)
[2022-12-15 17:44] LABS: ANISOCYTOSIS 1+; MACROCYTOSIS 0; OVALOCYTE 1+
[2022-12-15 18:19] LABS: EPI CELLS >36 /uL (0-25.1); HYALINE CASTS 1 /uL (0-3.1); URINE APPEARANCE CLOUDY; URINE BACTERIA 1214 /uL (0-1359); URINE BILIRUBIN NEGATIVE (NEGATIVE); URINE COLOR YELLOW; URINE GLUCOSE (UA) NEGATIVE (NEGATIVE); URINE KETONE NEGATIVE (NEGATIVE); URINE LEUK ESTERASE TRACE (NEGATIVE); URINE NITRITE NEGATIVE (NEGATIVE); URINE PROTEIN TRACE (NEGATIVE); URINE RBC 45 /uL (0-23.9); URINE UROBILINOGEN 0.2 mg/dL (0.2-1.0); URINE WBC 58 /uL (0-25.8)
[2022-12-15] MEDS ORDERED: ALBUTEROL SO4 0.083% IH SOL 2.5 MG/3 ML VIAL.NEB. NEB PRN (21:49)
[2022-12-15] MEDS: NICOTINE 14 MG/24 HOURS TOPICAL PATCH TD SCH (23:30)
[2022-12-15] MEDS: APIXABAN 5 MG TABLET PO SCH (23:30)
[2022-12-15] MEDS: BUDESONIDE/FORMETEROL FUMARATE 80/4.5 mcg INHALER IH SCH (23:34)
[2022-12-16] MEDS: methylPREDNISolone NA SUCC 40 MG/1 ML VIAL IVPUSH SCH ×3 (01:48→17:12)
[2022-12-16] MEDS ORDERED: traZODone HCL 50 MG TABLET (FP) PO ONE (02:45)
[2022-12-16] MEDS: PIPERACILLIN/TAZOB 4.5 GM 4.5 GM in DEXTROSE 5%-WATER 100 ML IVPB SCH ×2 (02:57→10:21)
[2022-12-16] MEDS ORDERED: PIPERACILLIN/TAZOB 4.5 GM 4.5 GM in DEXTROSE 5%-WATER 100 ML IVPB SCH (03:00)
[2022-12-16] MEDS: DOCUSATE SODIUM 100 MG CAPSULE (FP) PO SCH ×3 (06:15→21:46)
[2022-12-16] MEDS: INSULIN SLIDING SCALE (NOVOLOG) 1 VIAL SQ SCH ×3 (06:20→17:09)
[2022-12-16] MEDS: ALBUTEROL SO4 2.5/IPRATROPIUM 0.5 INH SOL 3 ML VIAL.NEB. NEB SCH ×4 (07:25→20:20)
[2022-12-16 09:49] LABS: HEMATOCRIT 42.5 % (32.4-45.2); HEMOGLOBIN 14.3 GM/dL (10.7-15.3); MCH 30.1 pg (25.7-33.7); MCHC 33.8 g/dl (32.0-36.0); MEAN CELL VOLUME 89.3 fl (80-96); MEAN PLT VOLUME 9.7 fl (7.5-11.1); PLATELET COUNT 284 10^3/uL (134-434); RBC 4.76 M/mm3 (3.60-5.2); RDW 15.2 % (11.6-15.6); WHITE BLOOD COUNT 10.5 K/mm3 (4.0-10.0)
[2022-12-16] MEDS ORDERED: AZITHROMYCIN IVPB 500 MG/250 ML BAG IVPB SCH (10:00)
[2022-12-16] MEDS ORDERED: BREXPIPRAZOLE 2 MG PO SCH (10:00)
[2022-12-16] MEDS ORDERED: FLUTICASONE/UMECLIDIN/VILANTER(100-62.5-25 TRELEGY ELLIPTA) INAHLER IH SCH (10:00)
[2022-12-16 10:06] LABS: POTASSIUM 4.6 mmol/L (3.5-5.1)
[2022-12-16 10:11] LABS: CALCIUM 9.9 mg/dL (8.5-10.1)
[2022-12-16 10:12] LABS: ALBUMIN 3.2 g/dl (3.4-5.0); BLOOD UREA NITROGEN 16.6 mg/dL (7-18); MAGNESIUM 1.7 mg/dL (1.8-2.4)
[2022-12-16 10:14] LABS: CREATININE 1.1 mg/dL (0.55-1.3)
[2022-12-16 10:15] LABS: PHOSPHOROUS 3.7 mg/dL (2.5-4.9)
[2022-12-16] MEDS ORDERED: MAG HYDROX/AL HYDROX/SIMETH 30 ML UNIT-DOSE CUP PO PRN (10:15)
[2022-12-16 10:16] LABS: BILIRUBIN,TOTAL 0.6 mg/dL (0.2-1); TOT PROT 6.7 g/dl (6.4-8.2)
[2022-12-16] MEDS: SENNOSIDES 8.6MG TABLET (FP) PO SCH (10:34)
[2022-12-16] MEDS: APIXABAN 5 MG TABLET PO SCH ×2 (10:34→21:46)
[2022-12-16] MEDS: ENALAPRIL MALEATE 10 MG TABLET PO SCH (10:34)
[2022-12-16] MEDS: DULoxetine HCL 30 MG CAPSULE.DR PO SCH (10:34)
[2022-12-16] MEDS: NICOTINE 14 MG/24 HOURS TOPICAL PATCH TD SCH (10:34)
[2022-12-16] MEDS: BUDESONIDE/FORMETEROL FUMARATE 80/4.5 mcg INHALER IH SCH ×2 (10:40→21:47)
[2022-12-16] MEDS ORDERED: PATIENT'S OWN MEDICATION (NON-FORMULARY) (Oxycodone Hcl/Acetaminophen [Oxycodone-Acetamino PO PRN (11:38)
[2022-12-16] MEDS ORDERED: INSULIN (NOVOLOG) ASPART 100 UNITS/ML 10ML VIAL ONE ×2 (11:43→17:08)
[2022-12-16] MEDS: PANTOPRAZOLE 40 MG TABLET PO SCH (12:02)
[2022-12-16] MEDS ORDERED: MAGNESIUM 2GM/50ML STERILE WATER IVPB IVPB ONE (12:14)
[2022-12-16 12:27] LABS: ANISOCYTOSIS 2+; MACROCYTOSIS 0; OVALOCYTE 2+; TARGET CELLS 1+; TEAR DROP CELLS 1+; TOXIC GRANULATION 2+
[2022-12-16] MEDS: oxyCODONE HCL 5 MG TABLET PO PRN ×2 (13:19→21:46)
[2022-12-16] MEDS: ACETAMINOPHEN 325 MG TABLET (FP) PO PRN (13:20)
[2022-12-16] MEDS: clonazePAM 0.5 MG TABLET PO PRN (21:46)
[2022-12-16] MEDS: ATORVASTATIN CA 20 MG TABLET (FP) PO SCH (21:46)
[2022-12-16] MEDS: traZODone HCL 100 MG TABLET (FP) PO SCH (21:47)
[2022-12-17] MEDS: methylPREDNISolone NA SUCC 40 MG/1 ML VIAL IVPUSH SCH ×3 (03:20→18:31)
[2022-12-17] MEDS: DOCUSATE SODIUM 100 MG CAPSULE (FP) PO SCH ×3 (05:20→21:54)
[2022-12-17] MEDS: INSULIN SLIDING SCALE (NOVOLOG) 1 VIAL SQ SCH ×3 (06:30→17:06)
[2022-12-17] MEDS: ALBUTEROL SO4 2.5/IPRATROPIUM 0.5 INH SOL 3 ML VIAL.NEB. NEB SCH ×4 (07:24→20:00)
[2022-12-17] MEDS ORDERED: FUROSEMIDE 20 MG TABLET (FP) PO SCH (10:00)
[2022-12-17] MEDS ORDERED: AZITHROMYCIN IVPB 500 MG/250 ML BAG IVPB SCH (10:00)
[2022-12-17 11:53] LABS: HEMATOCRIT 42.3 % (32.4-45.2); HEMOGLOBIN 13.8 GM/dL (10.7-15.3); MCH 29.1 pg (25.7-33.7); MCHC 32.6 g/dl (32.0-36.0); MEAN CELL VOLUME 89.5 fl (80-96); MEAN PLT VOLUME 8.8 fl (7.5-11.1); PLATELET COUNT 301 10^3/uL (134-434); RBC 4.72 M/mm3 (3.60-5.2); RDW 15.8 % (11.6-15.6)
[2022-12-17] MEDS: APIXABAN 5 MG TABLET PO SCH ×2 (12:00→21:54)
[2022-12-17] MEDS: SENNOSIDES 8.6MG TABLET (FP) PO SCH (12:00)
[2022-12-17] MEDS: PANTOPRAZOLE 40 MG TABLET PO SCH (12:00)
[2022-12-17] MEDS: ENALAPRIL MALEATE 10 MG TABLET PO SCH (12:00)
[2022-12-17] MEDS: BUDESONIDE/FORMETEROL FUMARATE 80/4.5 mcg INHALER IH SCH ×2 (12:01→22:08)
[2022-12-17] MEDS: NICOTINE 14 MG/24 HOURS TOPICAL PATCH TD SCH (12:01)
[2022-12-17] MEDS: DULoxetine HCL 30 MG CAPSULE.DR PO SCH (12:02)
[2022-12-17 12:18] LABS: POTASSIUM 4.4 mmol/L (3.5-5.1)
[2022-12-17 12:21] LABS: BLOOD UREA NITROGEN 25.8 mg/dL (7-18); MAGNESIUM 2.4 mg/dL (1.8-2.4)
[2022-12-17 12:24] LABS: CREATININE 1.1 mg/dL (0.55-1.3)
[2022-12-17] MEDS: traZODone HCL 100 MG TABLET (FP) PO SCH (21:54)
[2022-12-17] MEDS: ATORVASTATIN CA 20 MG TABLET (FP) PO SCH (21:54)
[2022-12-17] MEDS: oxyCODONE HCL 5 MG TABLET PO PRN (22:08)
[2022-12-17] MEDS: clonazePAM 0.5 MG TABLET PO PRN (22:08)
[2022-12-17] MEDS: ACETAMINOPHEN 325 MG TABLET (FP) PO PRN (22:09)
[2022-12-18] MEDS: methylPREDNISolone NA SUCC 40 MG/1 ML VIAL IVPUSH SCH ×2 (02:59→10:15)
[2022-12-18] MEDS: DOCUSATE SODIUM 100 MG CAPSULE (FP) PO SCH ×2 (06:50→14:04)
[2022-12-18] MEDS: INSULIN SLIDING SCALE (NOVOLOG) 1 VIAL SQ SCH ×3 (06:54→16:53)
[2022-12-18] MEDS: ALBUTEROL SO4 2.5/IPRATROPIUM 0.5 INH SOL 3 ML VIAL.NEB. NEB SCH ×3 (07:23→15:05)
[2022-12-18] MEDS ORDERED: AZITHROMYCIN 250 MG TABLET PO SCH (10:00)
[2022-12-18] MEDS: SENNOSIDES 8.6MG TABLET (FP) PO SCH (10:15)
[2022-12-18] MEDS: NICOTINE 14 MG/24 HOURS TOPICAL PATCH TD SCH (10:15)
[2022-12-18] MEDS: ENALAPRIL MALEATE 10 MG TABLET PO SCH (10:15)
[2022-12-18] MEDS: APIXABAN 5 MG TABLET PO SCH (10:15)
[2022-12-18] MEDS: PANTOPRAZOLE 40 MG TABLET PO SCH (10:15)
[2022-12-18] MEDS: DULoxetine HCL 30 MG CAPSULE.DR PO SCH (10:15)
[2022-12-18] MEDS: BUDESONIDE/FORMETEROL FUMARATE 80/4.5 mcg INHALER IH SCH (10:19)
[2022-12-18 10:29] LABS: HEMATOCRIT 41.3 % (32.4-45.2); HEMOGLOBIN 13.4 GM/dL (10.7-15.3); MCH 29.3 pg (25.7-33.7); MCHC 32.5 g/dl (32.0-36.0); MEAN CELL VOLUME 90.1 fl (80-96); PLATELET COUNT 268 10^3/uL (134-434); RBC 4.58 M/mm3 (3.60-5.2); RDW 15.8 % (11.6-15.6); WHITE BLOOD COUNT 18.6 K/mm3 (4.0-10.0)
[2022-12-18 10:34] LABS: POTASSIUM 4.1 mmol/L (3.5-5.1)
[2022-12-18 10:41] LABS: CALCIUM 9.7 mg/dL (8.5-10.1)
[2022-12-18 10:42] LABS: BLOOD UREA NITROGEN 23.9 mg/dL (7-18)
[2022-12-18 10:45] LABS: CREATININE 1.1 mg/dL (0.55-1.3)
[2022-12-18 10:52] VITALS: BP 123/69; RESP 20; TEMP 98
[2022-12-18] MEDS: oxyCODONE HCL 5 MG TABLET PO PRN (14:04)
[2022-12-18] MEDS: ACETAMINOPHEN 325 MG TABLET (FP) PO PRN (14:05)
[2022-12-18 14:29] VITALS: PULSE 117
== END 2022-12-18 18:01 | disposition home or self-care (01) ==
LOC: JER 15:28 → INTOOBSV 20:02 → JERBED 20:02 → J6S 22:13
PROVIDERS: ADMIT Internal Medicine; ATTEND Internal Medicine
PROC: 3E0F7GC Introduction of Other Therapeutic Substance into Respiratory Tract, Via Natural or Artificial Opening (ICD-10-PCS; principal; 2022-12-15)
PROC: 3E03329 Introduction of Other Anti-infective into Peripheral Vein, Percutaneous Approach (ICD-10-PCS; 2022-12-15)
PROC: 3E033GC Introduction of Other Therapeutic Substance into Peripheral Vein, Percutaneous Approach (ICD-10-PCS; 2022-12-15)
DX: R06.02 Shortness of breath (principal); R05.9 Cough, unspecified; R06.09 Other forms of dyspnea; R53.81 Other malaise; R68.83 Chills (without fever); J44.9 Chronic obstructive pulmonary disease, unspecified; E11.9 Type 2 diabetes mellitus without complications; Z86.711 Personal history of pulmonary embolism; K25.9 Gastric ulcer, unspecified as acute or chronic, without hemorrhage or perforation; R63.0 Anorexia; Z79.01 Long term (current) use of anticoagulants; E66.8 Other obesity; Z68.37 Body mass index [BMI] 37.0-37.9, adult; Z88.8 Allergy status to other drugs, medicaments and biological substances
CPT/HCPCS: 0241U-QW; 36415; 71045-TC-FY; 71275-TC; 80048; 80053; 81003; 82803; 82962; 83036; 83735; 84100; 84439; 84443; 84484; 85025; 85027; 87040; 87086; 87633; 87651; 87899; 93005; 93010; 93971-TC; 94010; 94640; 94761; 96365; 96367; 96368; 96375; 96376; 99285-25; G0378; Q9967

== ENCOUNTER 2023-03-15 04:17 | Day surgery (SDC) | payer OTHER ==
[2023-03-09 11:42] VITALS: BMI 35.3
[2023-03-15] MEDS ORDERED: BUPIVACAINE HCL/PF 0.5% (5MG/ML) 10 ML VIAL ONE (07:31)
[2023-03-15] MEDS ORDERED: BUPIVACAINE HCL/PF 0.25% (2.5MG/ML) 10 ML VIAL ONE (07:31)
[2023-03-15] MEDS ORDERED: TRIAMCINOLONE ACET 40MG/1ML VIAL ONE (07:31)
[2023-03-15] MEDS ORDERED: LIDOCAINE HCL/PF 1% SDV 5ML VIAL ONE (07:32)
[2023-03-15 08:24] VITALS: RESP 18
[2023-03-15] MEDS ORDERED: ACETAMINOPHEN 500 MG TABLET (FP) PO PRN (10:11)
[2023-03-15] MEDS ORDERED: LIDOCAINE HCL 1% PRESERVATIVE FREE - 30ML VIAL IJ ONE ×2 (10:34)
[2023-03-15] MEDS ORDERED: BUPIVACAINE HCL/PF 0.5% (5 MG/ML) 30 ML VIAL IJ ONE ×2 (10:34)
[2023-03-15] MEDS ORDERED: IOHEXOL 180 MG/1 ML ML IJ ONE ×2 (10:34)
[2023-03-15] MEDS ORDERED: TRIAMCINOLONE ACETONIDE 40 MG/ML 10 ML VIAL IJ ONE (10:34)
[2023-03-15 12:45] VITALS: BP 137/82; PULSE 68; TEMP 98
== END 2023-03-15 11:15 | disposition home or self-care (01) ==
LOC: JASU-SURG 04:17
PROVIDERS: ATTEND Pain Medicine Pain Medicine
PROC: 3E0U3BZ Introduction of Anesthetic Agent into Joints, Percutaneous Approach (ICD-10-PCS; 2023-03-15)
PROC: 3E0U33Z Introduction of Anti-inflammatory into Joints, Percutaneous Approach (ICD-10-PCS; principal; 2023-03-15 10:15)
DX: M53.3 Sacrococcygeal disorders, not elsewhere classified (principal)
CPT/HCPCS: 76000-TC-FY

== ENCOUNTER 2023-08-03 08:12 | Inpatient (IN) | payer OTHER ==
[2023-08-03 08:18] VITALS: BMI 37.8
[2023-08-03 10:13] LABS: INR 1.1 (0.83-1.09); PROTHROMBIN TIME (PATIENT) 12.7 SEC (9.7-13.0)
[2023-08-03 10:15] LABS: ACTIVATED PTT 28.7 SECONDS (25.2-36.5)
[2023-08-03 10:19] LABS: BASO % 0.3 % (0-2.0); EOS % 0.6 % (0-4.5); HEMOGLOBIN 13.5 GM/dL (10.7-15.3); LYMPH % 22.7 % (8-40); MCH 28.6 pg (25.7-33.7); MCHC 32.1 g/dl (32.0-36.0); MEAN PLT VOLUME 8.9 fl (7.5-11.1); MONO % 7.4 % (3.8-10.2); PLATELET COUNT 258 10^3/uL (134-434); RBC 4.72 M/mm3 (3.60-5.2); RDW 14.8 % (11.6-15.6); WHITE BLOOD COUNT 6.4 K/mm3 (4.0-10.0)
[2023-08-03 10:26] LABS: EPI CELLS >36 /uL (0-25.1); HYALINE CASTS 6 /uL (0-3.1); URINE APPEARANCE CLEAR; URINE BACTERIA 107 /uL (0-1359); URINE BILIRUBIN 1+ (NEGATIVE); URINE COLOR DK YELLOW; URINE GLUCOSE (UA) NEGATIVE (NEGATIVE); URINE KETONE TRACE (NEGATIVE); URINE LEUK ESTERASE TRACE (NEGATIVE); URINE NITRITE NEGATIVE (NEGATIVE); URINE PROTEIN 1+ (NEGATIVE); URINE WBC 52 /uL (0-25.8)
[2023-08-03] MEDS ORDERED: FAMOTIDINE 20 MG/50 ML IVPB 20 MG/50 ML MG IVPB ONE ×2 (10:26→10:35)
[2023-08-03] MEDS ORDERED: ALBUTEROL SO4 2.5/IPRATROPIUM 0.5 INH SOL 3 ML VIAL.NEB. NEB ONE ×2 (10:26→10:35)
[2023-08-03 10:27] LABS: POTASSIUM 4.3 mmol/L (3.5-5.1)
[2023-08-03 10:29] LABS: CALCIUM 9.8 mg/dL (8.5-10.1)
[2023-08-03 10:30] LABS: ALBUMIN 3.3 g/dl (3.4-5.0); BLOOD UREA NITROGEN 10.8 mg/dL (7-18)
[2023-08-03 10:33] LABS: CREATININE 0.9 mg/dL (0.55-1.3)
[2023-08-03 10:34] LABS: BILIRUBIN,TOTAL 0.6 mg/dL (0.2-1)
[2023-08-03 10:35] LABS: TOT PROT 6.8 g/dl (6.4-8.2)
[2023-08-03 10:55] LABS: URINE RBC 58.3 /uL (0-23.9)
[2023-08-03] MEDS ORDERED: ACETAMINOPHEN 500 MG TABLET (FP) PO ONE (12:59)
[2023-08-03] MEDS ORDERED: AZITHROMYCIN IVPB 500 MG in DEXTROSE 5%-WATER - 250 ML IVPB ONE (12:59)
[2023-08-03] MEDS ORDERED: ACETAMINOPHEN 500 MG TABLET (FP) ONE (12:59)
[2023-08-03] MEDS ORDERED: CEFTRIAXONE 1,000 MG in DEXTROSE 5%-WATER - 50 ML IVPB ONE (12:59)
[2023-08-03] MEDS ORDERED: CEFTRIAXONE 1 GM/50 ML BAG ONE (15:02)
[2023-08-03] MEDS ORDERED: ALBUTEROL SO4 HFA INHALER IH PRN ×2 (15:43→15:55)
[2023-08-03] MEDS ORDERED: ACETAMINOPHEN 325 MG TABLET (FP) PO PRN ×3 (15:46→16:30)
[2023-08-03] MEDS ORDERED: PATIENT'S OWN MEDICATION (NON-FORMULARY) (Oxycodone Hcl/Acetaminophen [Oxycodone-Acetamino PO PRN (15:55)
[2023-08-03] MEDS: ALBUTEROL SO4 2.5/IPRATROPIUM 0.5 INH SOL 3 ML VIAL.NEB. NEB SCH ×2 (16:15→20:05)
[2023-08-03] MEDS ORDERED: oxyCODONE HCL 5 MG TABLET PO PRN ×2 (16:29→16:31)
[2023-08-03] MEDS: PANTOPRAZOLE 40 MG TABLET PO SCH (16:43)
[2023-08-03] MEDS: INSULIN SLIDING SCALE (NOVOLOG) 1 VIAL SQ SCH ×2 (17:18→22:09)
[2023-08-03] MEDS ORDERED: REMDESIVIR 200 MG in SODIUM CHLORIDE 250 ML IVPB ONE (18:00)
[2023-08-03] MEDS: clonazePAM 0.5 MG TABLET PO PRN (20:33)
[2023-08-03] MEDS: NICOTINE 21 MG/24 HOURS TOPICAL PATCH TD SCH (20:33)
[2023-08-03] MEDS: APIXABAN 5 MG TABLET PO SCH (21:55)
[2023-08-03] MEDS: traZODone HCL 100 MG TABLET (FP) PO SCH (21:55)
[2023-08-03] MEDS: SENNOSIDES/DOCUSATE COMBO (SENNA PLUS) TABLET (UD) PO SCH (21:55)
[2023-08-03] MEDS ORDERED: PATIENT'S OWN MEDICATION (NON-FORMULARY) (Lifitegrast [Xiidra] 1 EACH Droperette) OP SCH (22:00)
[2023-08-04] MEDS ORDERED: methaDONE HCL 10 MG TABLET PO SCH (06:30)
[2023-08-04] MEDS: ALBUTEROL SO4 2.5/IPRATROPIUM 0.5 INH SOL 3 ML VIAL.NEB. NEB SCH ×4 (07:15→20:05)
[2023-08-04] MEDS: INSULIN SLIDING SCALE (NOVOLOG) 1 VIAL SQ SCH ×4 (08:17→23:53)
[2023-08-04 09:26] LABS: HEMATOCRIT 42.3 % (32.4-45.2); HEMOGLOBIN 13.6 GM/dL (10.7-15.3); MCH 28.3 pg (25.7-33.7); MCHC 32.1 g/dl (32.0-36.0); MEAN PLT VOLUME 8.7 fl (7.5-11.1); PLATELET COUNT 208 10^3/uL (134-434); RBC 4.81 M/mm3 (3.60-5.2); RDW 14.9 % (11.6-15.6); WHITE BLOOD COUNT 7.5 K/mm3 (4.0-10.0)
[2023-08-04] MEDS ORDERED: NICOTINE 21 MG/24 HOURS TOPICAL PATCH TD SCH (10:00)
[2023-08-04] MEDS ORDERED: methylPREDNISolone NA SUCC 40 MG/1 ML VIAL IVPUSH SCH (10:00)
[2023-08-04] MEDS ORDERED: REMDESIVIR 100 MG in SODIUM CHLORIDE 250 ML IVPB ONE (10:00)
[2023-08-04] MEDS ORDERED: DULoxetine HCL 60 MG CAPSULE.DR PO SCH (10:00)
[2023-08-04] MEDS: APIXABAN 5 MG TABLET PO SCH ×2 (10:25→22:12)
[2023-08-04] MEDS: PANTOPRAZOLE 40 MG TABLET PO SCH (10:25)
[2023-08-04] MEDS: DULoxetine HCL 30 MG CAPSULE.DR PO SCH (10:25)
[2023-08-04] MEDS: NICOTINE 21 MG/24 HOURS TOPICAL PATCH TD SCH (10:25)
[2023-08-04] MEDS: SENNOSIDES/DOCUSATE COMBO (SENNA PLUS) TABLET (UD) PO SCH ×2 (10:26→22:12)
[2023-08-04] MEDS: ENALAPRIL MALEATE 10 MG TABLET PO SCH (10:29)
[2023-08-04 10:37] LABS: POTASSIUM 3.7 mmol/L (3.5-5.1)
[2023-08-04 10:49] LABS: ALBUMIN 3.2 g/dl (3.4-5.0)
[2023-08-04 10:50] LABS: BLOOD UREA NITROGEN 9.3 mg/dL (7-18); MAGNESIUM 1.9 mg/dL (1.8-2.4)
[2023-08-04 10:52] LABS: CREATININE 0.9 mg/dL (0.55-1.3); PHOSPHOROUS 3.1 mg/dL (2.5-4.9)
[2023-08-04 10:53] LABS: BILIRUBIN,TOTAL 0.7 mg/dL (0.2-1); TOT PROT 6.5 g/dl (6.4-8.2)
[2023-08-04 10:55] LABS: ANISOCYTOSIS 0; MACROCYTOSIS 0
[2023-08-04] MEDS: FLUTICASONE/UMECLIDIN/VILANTER(100-62.5-25 TRELEGY ELLIPTA) INAHLER IH SCH (16:49)
[2023-08-04] MEDS: ASCORBIC ACID 250 MG TABLET (FP) PO SCH (19:10)
[2023-08-04] MEDS: ZINC SULFATE 220 MG CAPSULE (FP) PO SCH (19:10)
[2023-08-04] MEDS: traZODone HCL 100 MG TABLET (FP) PO SCH (22:12)
[2023-08-04] MEDS: clonazePAM 0.5 MG TABLET PO PRN (22:12)
[2023-08-05] MEDS: INSULIN SLIDING SCALE (NOVOLOG) 1 VIAL SQ SCH ×2 (07:56→11:48)
[2023-08-05] MEDS: ALBUTEROL SO4 2.5/IPRATROPIUM 0.5 INH SOL 3 ML VIAL.NEB. NEB SCH ×2 (08:39→12:37)
[2023-08-05] MEDS ORDERED: predniSONE 20 MG TABLET (UD) PO SCH (10:00)
[2023-08-05] MEDS ORDERED: REMDESIVIR 100 MG in SODIUM CHLORIDE 250 ML IVPB ONE (10:00)
[2023-08-05 10:07] VITALS: BP 98/60; PULSE 125; RESP 18; TEMP 98
[2023-08-05 10:11] LABS: HEMATOCRIT 38.9 % (32.4-45.2); HEMOGLOBIN 12.5 GM/dL (10.7-15.3); MCH 28.5 pg (25.7-33.7); MCHC 32.2 g/dl (32.0-36.0); MEAN CELL VOLUME 88.8 fl (80-96); MEAN PLT VOLUME 9.5 fl (7.5-11.1); PLATELET COUNT 209 10^3/uL (134-434); RBC 4.38 M/mm3 (3.60-5.2); RDW 14.4 % (11.6-15.6); WHITE BLOOD COUNT 8.2 K/mm3 (4.0-10.0)
[2023-08-05 10:54] LABS: POTASSIUM 3.7 mmol/L (3.5-5.1)
[2023-08-05 11:06] LABS: CALCIUM 9.2 mg/dL (8.5-10.1)
[2023-08-05] MEDS: ZINC SULFATE 220 MG CAPSULE (FP) PO SCH (11:11)
[2023-08-05] MEDS: SENNOSIDES/DOCUSATE COMBO (SENNA PLUS) TABLET (UD) PO SCH (11:11)
[2023-08-05] MEDS: PANTOPRAZOLE 40 MG TABLET PO SCH (11:12)
[2023-08-05] MEDS: ASCORBIC ACID 250 MG TABLET (FP) PO SCH (11:12)
[2023-08-05] MEDS: DULoxetine HCL 30 MG CAPSULE.DR PO SCH (11:12)
[2023-08-05] MEDS: APIXABAN 5 MG TABLET PO SCH (11:12)
[2023-08-05] MEDS: NICOTINE 21 MG/24 HOURS TOPICAL PATCH TD SCH (11:13)
[2023-08-05] MEDS: ENALAPRIL MALEATE 10 MG TABLET PO SCH (11:13)
[2023-08-05] MEDS: FLUTICASONE/UMECLIDIN/VILANTER(100-62.5-25 TRELEGY ELLIPTA) INAHLER IH SCH (11:14)
[2023-08-05] MEDS ORDERED: oxyCODONE HCL 5 MG TABLET PO PRN (11:40)
[2023-08-05] MEDS ORDERED: ACETAMINOPHEN 325 MG TABLET (FP) PO PRN (11:46)
[2023-08-05] MEDS ORDERED: NICOTINE POLACRILEX 2 MG GUM BUC PRN (11:56)
== END 2023-08-05 15:53 | disposition home or self-care (01) | DRG 177 ==
LOC: JER 08:12 → JERBED 14:23 → J5S 15:42 → OBSVTOIN 08-04 10:05
PROVIDERS: ADMIT Internal Medicine; ATTEND Internal Medicine
PROC: XW033E5 Introduction of Remdesivir Anti-infective into Peripheral Vein, Percutaneous Approach, New Technology Group 5 (ICD-10-PCS; principal; 2023-08-04)
DX: U07.1 COVID-19 (principal); J12.82 Pneumonia due to coronavirus disease 2019; J44.1 Chronic obstructive pulmonary disease with (acute) exacerbation; C34.90 Malignant neoplasm of unspecified part of unspecified bronchus or lung; J96.11 Chronic respiratory failure with hypoxia; F17.210 Nicotine dependence, cigarettes, uncomplicated; K21.9 Gastro-esophageal reflux disease without esophagitis; E78.5 Hyperlipidemia, unspecified
CPT/HCPCS: 0241U-QW; 36415; 71046-TC-FY; 71275-TC; 80048; 80053; 81003; 82962; 83735; 84100; 84484; 85025; 85027; 85610; 85730; 86140; 87086; 93005; 93010; 94640; 97116-GP; 97161-GP; 99285-25; G0378; J0248; Q9967

== ENCOUNTER 2023-08-12 08:19 | Emergency (ER) | payer OTHER ==
[2023-08-12 08:27] VITALS: BP 205/114; PULSE 106; RESP 22; TEMP 98.7; BMI 37.0
[2023-08-12 09:30] LABS: EPI CELLS >36 /uL (0-25.1); HYALINE CASTS 3 /uL (0-3.1); URINE APPEARANCE CLOUDY; URINE BACTERIA 77 /uL (0-1359); URINE BILIRUBIN 1+ (NEGATIVE); URINE COLOR DK YELLOW; URINE GLUCOSE (UA) NEGATIVE (NEGATIVE); URINE KETONE TRACE (NEGATIVE); URINE LEUK ESTERASE 2+ (NEGATIVE); URINE NITRITE NEGATIVE (NEGATIVE); URINE PROTEIN 1+ (NEGATIVE); URINE WBC 1198 /uL (0-25.8)
[2023-08-12 09:51] LABS: URINE RBC 52.8 /uL (0-23.9); YEAST NONE SEEN (NEGATIVE)
[2023-08-12] MEDS ORDERED: ALBUTEROL SO4 2.5/IPRATROPIUM 0.5 INH SOL 3 ML VIAL.NEB. NEB ONE ×2 (09:56→10:03)
[2023-08-12 09:57] LABS: URINE CRYSTALS CALCIUM OXALATE SEEN /hpf
[2023-08-12] MEDS ORDERED: MAG HYDROX/AL HYDROX/SIMETH 30 ML UNIT-DOSE CUP PO ONE (10:04)
[2023-08-12] MEDS ORDERED: PANTOPRAZOLE 40 MG TABLET PO ONE ×2 (10:04→10:17)
[2023-08-12] MEDS ORDERED: MAG HYDROX/AL HYDROX/SIMETH 30 ML UNIT-DOSE CUP ONE (10:17)
== END 2023-08-12 11:29 | disposition home or self-care (01) ==
LOC: JER 08:19
PROC: 3E0F7GC Introduction of Other Therapeutic Substance into Respiratory Tract, Via Natural or Artificial Opening (ICD-10-PCS; principal; 2023-08-12)
DX: R30.0 Dysuria (principal); R35.0 Frequency of micturition; R10.30 Lower abdominal pain, unspecified; R06.02 Shortness of breath; J44.9 Chronic obstructive pulmonary disease, unspecified; N30.00 Acute cystitis without hematuria
CPT/HCPCS: 71046-TC-FY; 81003; 87086; 99284-25

== ENCOUNTER 2024-04-02 13:34 | Inpatient (IN) | payer OTHER ==
[2024-04-02 13:48] VITALS: BMI 35.9
[2024-04-02] MEDS ORDERED: ENALAPRIL MALEATE 5 MG TABLET ONE (15:01)
[2024-04-02 15:04] LABS: HEMATOCRIT 43.5 % (32.4-45.2); MCH 27.3 pg (25.7-33.7); MCHC 32.2 g/dl (32.0-36.0); MEAN CELL VOLUME 84.9 fl (80-96); MEAN PLT VOLUME 8.5 fl (7.5-11.1); PLATELET COUNT 344 10^3/uL (134-434); RBC 5.12 M/mm3 (3.60-5.2); RDW 15.8 % (11.6-15.6); WHITE BLOOD COUNT 7.2 K/mm3 (4.0-10.0)
[2024-04-02] MEDS: ENALAPRIL MALEATE 10 MG TABLET PO ONE (15:04)
[2024-04-02 15:08] LABS: EPI CELLS >36 /uL (0-25.1); HYALINE CASTS 2 /uL (0-3.1); PH,URINE 5.5 (5.0-8.0); URINE APPEARANCE CLOUDY; URINE BACTERIA 467 /uL (0-1359); URINE BILIRUBIN NEGATIVE (NEGATIVE); URINE COLOR DK YELLOW; URINE GLUCOSE (UA) NEGATIVE (NEGATIVE); URINE KETONE TRACE (NEGATIVE); URINE LEUK ESTERASE 2+ (NEGATIVE); URINE NITRITE NEGATIVE (NEGATIVE); URINE PROTEIN 1+ (NEGATIVE); URINE WBC 330 /uL (0-25.8)
[2024-04-02 15:21] LABS: POTASSIUM 4.1 mmol/L (3.5-5.1)
[2024-04-02 15:23] LABS: ALBUMIN 3.5 g/dl (3.4-5.0); BLOOD UREA NITROGEN 10.3 mg/dL (7-18); CALCIUM 10.4 mg/dL (8.5-10.1)
[2024-04-02 15:24] LABS: URINE RBC 32 /uL (0-23.9)
[2024-04-02 15:26] LABS: CREATININE 1.1 mg/dL (0.55-1.3)
[2024-04-02 15:28] LABS: BILIRUBIN,TOTAL 0.4 mg/dL (0.2-1); TOT PROT 7.1 g/dl (6.4-8.2)
[2024-04-02 15:31] LABS: N-TERMINAL BNP 594.4 pg/ml (5-125)
[2024-04-02] MEDS ORDERED: ACETAMINOPHEN INJECTION 100 ML ONE (15:37)
[2024-04-02] MEDS ORDERED: CEFTRIAXONE 1 GM/50 ML BAG ONE (15:38)
[2024-04-02] MEDS: ACETAMINOPHEN 1000 MG/100 ML BAG IVPB ONE (15:45)
[2024-04-02 16:22] LABS: EPI CELLS >36 /uL (0-25.1); HYALINE CASTS 9 /uL (0-3.1); URINE APPEARANCE CLOUDY; URINE BACTERIA 130 /uL (0-1359); URINE BILIRUBIN NEGATIVE (NEGATIVE); URINE COLOR YELLOW; URINE GLUCOSE (UA) NEGATIVE (NEGATIVE); URINE KETONE TRACE (NEGATIVE); URINE LEUK ESTERASE 2+ (NEGATIVE); URINE NITRITE NEGATIVE (NEGATIVE); URINE PROTEIN TRACE (NEGATIVE); URINE RBC 11 /uL (0-23.9); URINE WBC 237 /uL (0-25.8)
[2024-04-02] MEDS: CEFTRIAXONE 1 GM in DEXTROSE 5%-WATER - 100 ML IVPB ONE (16:34)
[2024-04-02] MEDS ORDERED: clonazePAM 0.5 MG TABLET ONE (16:35)
[2024-04-02] MEDS: clonazePAM 0.5 MG TABLET PO ONE (16:39)
[2024-04-02] MEDS ORDERED: ALBUTEROL SO4 HFA INHALER IH PRN (17:56)
[2024-04-02] MEDS ORDERED: traZODone HCL 100 MG TABLET (FP) PO PRN (17:56)
[2024-04-02] MEDS: FUROSEMIDE 20 MG TABLET (FP) PO SCH (17:59)
[2024-04-02] MEDS: ALBUTEROL SO4 2.5/IPRATROPIUM 0.5 INH SOL 3 ML VIAL.NEB. NEB SCH (20:17)
[2024-04-02] MEDS: ONDANSETRON *ODT* 4 MG TABLET SL ONE (23:44)
[2024-04-03] MEDS: APIXABAN 5 MG TABLET PO SCH (00:02)
[2024-04-03] MEDS: ATORVASTATIN CA 20 MG TABLET (FP) PO SCH (00:03)
[2024-04-03 07:40] VITALS: BP 135/80; PULSE 107; TEMP 98.6
[2024-04-03 08:06] LABS: POTASSIUM 3.4 mmol/L (3.5-5.1)
[2024-04-03 08:09] LABS: CALCIUM 9.7 mg/dL (8.5-10.1); MAGNESIUM 1.7 mg/dL (1.8-2.4)
[2024-04-03 08:10] LABS: BLOOD UREA NITROGEN 10.8 mg/dL (7-18)
[2024-04-03 08:13] LABS: PHOSPHOROUS 3.1 mg/dL (2.5-4.9); TOT PROT 6.1 g/dl (6.4-8.2)
[2024-04-03] MEDS: SENNOSIDES 8.6MG TABLET (FP) PO PRN (08:13)
[2024-04-03 08:15] LABS: BILIRUBIN,TOTAL 0.6 mg/dL (0.2-1)
[2024-04-03 08:57] LABS: HEMATOCRIT 39.5 % (32.4-45.2); MCH 27.7 pg (25.7-33.7); MCHC 32.9 g/dl (32.0-36.0); MEAN CELL VOLUME 84.1 fl (80-96); MEAN PLT VOLUME 8.7 fl (7.5-11.1); PLATELET COUNT 286 10^3/uL (134-434); RBC 4.69 M/mm3 (3.60-5.2); RDW 16.1 % (11.6-15.6); WHITE BLOOD COUNT 8.5 K/mm3 (4.0-10.0)
[2024-04-03] MEDS: ENALAPRIL MALEATE 10 MG TABLET PO SCH (09:18)
[2024-04-03] MEDS: CEFTRIAXONE 1 GM in DEXTROSE 5%-WATER - 50 ML IVPB SCH (09:18)
[2024-04-03 10:16] LABS: ANISOCYTOSIS 0; HELMET CELLS 0; HOWELL-JOLLY BODIES 0; MACROCYTOSIS 0; OVALOCYTE 0; ROULEAU 0; SICKELED CELLS 0; TARGET CELLS 0; TEAR DROP CELLS 0; TOXIC GRANULATION 0
[2024-04-03] MEDS ORDERED: ACETAMINOPHEN 325 MG TABLET (FP) PO PRN ×2 (10:16→11:02)
[2024-04-03] MEDS: METHADONE PO SCH (10:38)
[2024-04-03 12:48] VITALS: RESP 16
== END 2024-04-03 12:00 | disposition left against medical advice (07) | DRG 305 ==
LOC: JER 13:34 → JERBED 15:46 → OBSVTOIN 16:29 → J4W 19:17
PROVIDERS: ADMIT Internal Medicine; ATTEND Internal Medicine
DX: I10 Essential (primary) hypertension (principal); F11.20 Opioid dependence, uncomplicated; J96.11 Chronic respiratory failure with hypoxia; N39.0 Urinary tract infection, site not specified; J44.9 Chronic obstructive pulmonary disease, unspecified; D32.9 Benign neoplasm of meninges, unspecified; E78.5 Hyperlipidemia, unspecified; Z85.118 Personal history of other malignant neoplasm of bronchus and lung; I25.10 Atherosclerotic heart disease of native coronary artery without angina pectoris; B96.20 Unspecified Escherichia coli [E. coli] as the cause of diseases classified elsewhere; Z86.718 Personal history of other venous thrombosis and embolism; Z86.711 Personal history of pulmonary embolism; Z99.81 Dependence on supplemental oxygen
CPT/HCPCS: 0241U-QW; 36415; 71045-TC-FY; 71250-TC; 80053; 80061; 81003; 83036; 83735; 83880; 84100; 84443; 84484; 85025; 85027; 87086; 87186; 93005; 93010; 93306-TC; 94640; 99285-25; G0378; J0131